=== PATIENT | male | born 1995 | race Caucasian/White ===

== ENCOUNTER 2021-02-21 10:57 | Emergency (ER) | payer SELFPAY ==
[2021-02-21 14:17] LABS: Urine Blood Negative (Negative); Urine Glucose Negative (Negative); Urine Protein Negative (Negative)
[2021-02-21] MEDS ORDERED: DIAZEPAM 5 MG TABLET ONE (14:25)
[2021-02-21] MEDS ORDERED: dexAMETHasone 10 MG/ML VIAL ONE (14:26)
[2021-02-21] MEDS ORDERED: NA CHLORIDE 0.9% 1,000 ML ONE (14:26)
[2021-02-21] MEDS ORDERED: MORPHINE 4 MG/ML SYR ONE (14:26)
[2021-02-21] MEDS ORDERED: ONDANSETRON 4 MG/2 ML VIAL ONE (14:26)
[2021-02-21] MEDS ORDERED: KETOROLAC 30 MG/ML INJ ONE (14:26)
[2021-02-21 14:30] LABS: Absolute Lymphocytes (CBC) 1.1 K/uL (0.7-4.9); Basophils % 0.5 % (0-1.3); Hematocrit 40.5 % (39.6-49.0); Lymphocytes % 20.9 % (15.3-44.8); MPV 9.5 fL (7.6-11.3); RBC Red Blood Cell Count 4.58 M/uL (4.33-5.43)
[2021-02-21 14:45] LABS: ALT/SGPT 19 U/L (12-78); AST/SGOT 11 U/L (15-37); Alkaline Phosphatase 67 U/L (45-117); BUN Blood Urea Nitrogen 8 mg/dL (7-18); Bicarbonate 29 mmol/L (21-32); Bilirubin Total 0.7 mg/dL (0.2-1.0); Glucose Level 92 mg/dL (74-106); Potassium 3.2 mmol/L (3.5-5.1); Protein, Total 8.5 g/dL (6.4-8.2); Sodium Level 143 mmol/L (136-145)
--- NOTE | 2021-02-21 15:06 | RAD REPORT ---
EXAM DESCRIPTION: CT - Spine Lumbar Wo Con - 02/21/2021 2:19 pm CLINICAL HISTORY: LOWER BACK PAIN, dysuria, urinary retention, right lower extremity radicular sympt oms COMPARISON: None. TECHNIQUE: Thin section axial imaging of the lumbar spine was performed. Sagittal and coronal recon struction images were generated and reviewed. All CT scans are performed using dose optimization technique as appropriate and may include automated exposure control or mA/KV adjustment according to patient size. FINDINGS: Lumbar bodies are normal in height and alignment. No acute or significant bone finding kylie ntifiable. No perispinal mass. No disc herniation is identifiable. No significant degree of disc bulging seen. No central spinal mayra nosis or significant foraminal stenosis identifiable. Central canal detail is inherently limited on C T imaging. Bilateral extrarenal pelves are present. No nonobstructing renal calculi seen. Imaged portions of the ureters show no calculi. Distal ureters and bladder not imaged on this study. IMPRESSION: Unremarkable noncontrast CT scan of the lumbar spine.
[2021-02-21] MEDS ORDERED: POTASSIUM 25 MEQ EFFERV TAB ONE (15:34)
--- NOTE | 2021-02-21 16:25 | ER ---
Nurse's Notes [facility] Name: Aakash Bishop Age: 25 yrs Sex: Male : 1995 Arrival Date: 02/21/2021 Time: 11:00 Bed 26 Private MD: Diagnosis: Low back pain;Sciatica, right side;Hypokalemia Presentation: 02/21 11:07 Chief complaint: Patient states: Urinary retention and dysuria off/on for 1 year. Wants ll1 his prostate checked because prostate CA runs in his family. Pain to lower back and down R leg for at least 1 month. Gait steady. No fever, symptoms worse at night. Coronavirus screen: Client denies travel out of the [place] in the last 14 days. At this time, the client does not indicate any symptoms associated with coronavirus-19. Ebola Screen: Patient denies travel to an Ebola-affected area in the 21 days before illness onset. Initial Sepsis Screen: Does the patient meet any 2 criteria? No. Patient's initial sepsis screen is negative. Does the patient have a suspected source of infection? Yes: Dysuria/Frequency/Urgency/UTI. Risk Assessment: Do you want to hurt yourself or someone else? Patient reports no desire to harm self or others. Onset of symptoms was January 24, 2020. 11:07 Method Of Arrival: Ambulatory ll1 11:07 Acuity: CHRISTIANO 3 ll1 Triage Assessment: 16:43 General: Behavior is calm. zb Historical: - Allergies: 11:10 PENICILLINS; ll1 - PMHx: 11:10 Panic Attacks; ll1 - PSHx: 11:10 wisdom teeth; Tonsillectomy; ll1 - Immunization history:: Flu vaccine is not up to date. - Social history:: Smoking status: Patient/guardian denies using tobacco, Stopped _ months ago 3. - Family history:: not pertinent. Screenin:21 Abuse screen: Denies threats or abuse. Denies injuries from another. Nutritional zb screening: No deficits noted. Tuberculosis screening: No symptoms or risk factors identified. Fall Risk None identified. Assessment: 13:22 General: Appears in no apparent distress. uncomfortable. Pain: Complains of pain in zb abdomen, pelvis and right leg Pain radiates to right leg Pain currently is 8 out of 10 on a pain scale. Quality of pain is described as aching, dull, tender, throbbing. Neuro: Level of Consciousness is awake, alert, obeys commands, Oriented to person, place, time, situation. Cardiovascular: Patient's skin is warm and dry. Respiratory: Airway is patent Respiratory effort is even, unlabored, Respiratory pattern is regular, symmetrical. GI: Abdomen is flat, Abdomen is tender to palpation X 4 quads. : Reports burning with urination, pain lower quadrant(s) in lower back urinary frequency. Derm: Skin is intact, is healthy with good turgor, Skin is dry, Skin is normal, Skin temperature is warm. Musculoskeletal: Circulation, motion, and sensation intact. Range of motion: intact in all extremities. 14:14 Reassessment: Patient appears in no apparent distress at this time. Patient and/or zb family updated on plan of care and expected duration. Pain level reassessed. Patient is alert, oriented x 3, equal unlabored respirations, skin warm/dry/pink. patient went to CT. states that medication had decreased pain and taken the edge off. Vital Signs: 11:07 BP 134 / 91; Pulse 87; Resp 17; Temp 98.6; Pulse Ox 99% ; Weight 72.12 kg; Height 5 ft. ll1 7 in. (170.18 cm); Pain 7/10; 13:25 BP 129 / 58; Pulse 71; Resp 16; Pulse Ox 99% on R/A; zb 14:30 BP 124 / 62; Pulse 98; Resp 16; Pulse Ox 100% on R/A; zb 16:30 BP 110 / 68; Pulse 67; Resp 16; Pulse Ox 100% on R/A; zb 11:07 Body Mass Index 24.90 (72.12 kg, 170.18 cm) ll1 ED Course: 11:00 Patient arrived in ED. bp1 11:09 Triage completed. ll1 11:10 Arm band placed on. ll1 13:06 Patient placed in an exam room, on a stretcher. ll1 13:12 Santy Gates MD is Attending Physician. [facility] 13:21 Cari Bee, HARDY is Primary Nurse. zb 13:25 Patient has correct armband on for positive identification. Bed in low position. Call zb light in reach. Side rails up X 1. Adult w/ patient. Pulse ox on. NIBP on. Door closed. Noise minimized. Warm blanket given. 14:10 Initial lab(s) drawn, by me, sent to lab. Urine collected: clean catch specimen, mb4 cloudy. Inserted saline lock: 22 gauge in right antecubital area, using aseptic technique. Blood collected. 14:19 CT Lumbar Spine Wo Con In Process Unspecified. EDMS 16:43 No provider procedures requiring assistance completed. IV discontinued, intact, zb bleeding controlled, No redness/swelling at site. Pressure dressing applied. Administered Medications: 14:13 Drug: Zofran (Ondansetron) 4 mg Route: IVP; Site: right antecubital; zb 14:26 Follow up: Response: No adverse reaction; Nausea is decreased zb 14:13 Drug: Decadron - Dexamethasone 10 mg Route: IVP; Site: right antecubital; zb 14:28 Follow up: Response: Marked relief of symptoms; Pain is decreased zb 14:14 Drug: TORadol (ketorolac) 30 mg Route: IVP; Site: right antecubital; zb 14:28 Follow up: Response: No adverse reaction; Marked relief of symptoms; Pain is decreased zb 14:14 Drug: morphine 4 mg {Note: RASS +1.} Route: IVP; Site: right antecubital; zb 14:26 Follow up: Response: No adverse reaction; Pain is decreased; RASS: Alert and Calm (0) zb 14:34 Drug: NS 0.9% 1000 ml Route: IV; Rate: 1 bolus; Site: right antecubital; zb 16:00 Follow up: Response: No adverse reaction; IV Status: Completed infusion; IV Intake: zb 1000ml 14:34 Drug: Valium (diazepam) 5 mg Route: PO; zb 15:00 Follow up: Response: No adverse reaction; Marked relief of symptoms; Pain is decreased; zb Anxiety decreased 15:15 Drug: Potassium Effervescent Tablet 25 mEq Route: PO; zb 16:00 Follow up: Response: No adverse reaction zb Intake: 16:00 IV: 1000ml; Total: 1000ml. zb Outcome: 16:25 Discharge ordered by . michele 16:43 Discharged to home ambulatory, with family. zb 16:43 Condition: stable 16:43 Discharge instructions given to patient, family, Instructed on discharge instructions, follow up and referral plans. medication usage, Demonstrated understanding of instructions, follow-up care, medications, Prescriptions given X 4. 16:44 Patient left the ED. laina Signatures: Dispatcher [employer] EDMS Santy Gates MD MD cha Baxter, Mackenzie mb4 Talon García RN RN ll1 Kamla Rios Zipporah, RN RN zb
--- NOTE | 2021-02-21 16:26 | EDPHYS ---
Physician Documentation [facility] Name: Aakash Bishop Age: 25 yrs Sex: Male : 1995 Arrival Date: 02/21/2021 Time: 11:00 Bed 26 Private MD: ED Physician Santy Gates HPI: 02/21 13:52 This 25 yrs old Male presents to ER via Ambulatory with complaints of Urinary michele Retention, Pain in Legs. 13:52 The patient presents with abdominal pain in the lower abdomen. Onset: The michele symptoms/episode began/occurred 3 day(s) ago. The patient presents with pain that is acute, with no known mechanism of injury. The symptoms are located in the low back, lumbar area. Onset: The symptoms/episode began/occurred 3 day(s) ago. The pain radiates to the right low back. Associated signs and symptoms: The patient has no apparent associated signs or symptoms. The problem was sustained from unknown cause. Modifying factors: The patient symptoms are alleviated by remaining still, the patient symptoms are aggravated by any movement, movement. Severity of symptoms: At their worst the symptoms were moderate, in the emergency department the symptoms are unchanged. Historical: - Allergies: 11:10 PENICILLINS; ll1 - PMHx: 11:10 Panic Attacks; ll1 - PSHx: 11:10 wisdom teeth; Tonsillectomy; ll1 - Immunization history:: Flu vaccine is not up to date. - Social history:: Smoking status: Patient/guardian denies using tobacco, Stopped _ months ago 3. - Family history:: not pertinent. ROS: 13:52 Constitutional: Negative for fever, chills, and weight loss, Eyes: Negative for injury, michele pain, redness, and discharge, ENT: Negative for injury, pain, and discharge, Neck: Negative for injury, pain, and swelling, Cardiovascular: Negative for chest pain, palpitations, and edema, Respiratory: Negative for shortness of breath, cough, wheezing, and pleuritic chest pain, Abdomen/GI: Negative for abdominal pain, nausea, vomiting, diarrhea, and constipation, : Negative for injury, bleeding, discharge, and swelling, MS/Extremity: Negative for injury and deformity, Skin: Negative for injury, rash, and discoloration, Neuro: Negative for headache, weakness, numbness, tingling, and seizure, Psych: Negative for depression, anxiety, suicide ideation, homicidal ideation, and hallucinations, Allergy/Immunology: Negative for hives, rash, and allergies, Endocrine: Negative for neck swelling, polydipsia, polyuria, polyphagia, and marked weight changes, Hematologic/Lymphatic: Negative for swollen nodes, abnormal bleeding, and unusual bruising. 13:52 Back: Positive for decreased range of motion, radiated pain, of the right low back. Exam: 13:52 Constitutional: This is a well developed, well nourished patient who is awake, alert, michele and in no acute distress. Head/Face: Normocephalic, atraumatic. Eyes: Pupils equal round and reactive to light, extra-ocular motions intact. Lids and lashes normal. Conjunctiva and sclera are non-icteric and not injected. Cornea within normal limits. Periorbital areas with no swelling, redness, or edema. ENT: Nares patent. No nasal discharge, no septal abnormalities noted. Tympanic membranes are normal and external auditory canals are clear. Oropharynx with no redness, swelling, or masses, exudates, or evidence of obstruction, uvula midline. Mucous membranes moist. Neck: Trachea midline, no thyromegaly or masses palpated, and no cervical lymphadenopathy. Supple, full range of motion without nuchal rigidity, or vertebral point tenderness. No Meningismus. Chest/axilla: Normal chest wall appearance and motion. Nontender with no deformity. No lesions are appreciated. Cardiovascular: Regular rate and rhythm with a normal S1 and S2. No gallops, murmurs, or rubs. Normal PMI, no JVD. No pulse deficits. Respiratory: Lungs have equal breath sounds bilaterally, clear to auscultation and percussion. No rales, rhonchi or wheezes noted. No increased work of breathing, no retractions or nasal flaring. Abdomen/GI: Soft, non-tender, with normal bowel sounds. No distension or tympany. No guarding or rebound. No evidence of tenderness throughout. Male : Normal genitalia with no discharge or lesions. Skin: Warm, dry with normal turgor. Normal color with no rashes, no lesions, and no evidence of cellulitis. MS/ Extremity: Pulses equal, no cyanosis. Neurovascular intact. Full, normal range of motion. Neuro: Awake and alert, GCS 15, oriented to person, place, time, and situation. Cranial nerves II-XII grossly intact. Motor strength 5/5 in all extremities. Sensory grossly intact. Cerebellar exam normal. Normal gait. Psych: Awake, alert, with orientation to person, place and time. Behavior, mood, and affect are within normal limits. 13:52 Back: pain, that is mild, ROM is painful, with all movement, normal spinal alignment noted, CVA tenderness, is absent, muscle spasm, is appreciated in the right mid back and right low back. Vital Signs: 11:07 BP 134 / 91; Pulse 87; Resp 17; Temp 98.6; Pulse Ox 99% ; Weight 72.12 kg; Height 5 ft. ll1 7 in. (170.18 cm); Pain 7/10; 13:25 BP 129 / 58; Pulse 71; Resp 16; Pulse Ox 99% on R/A; zb 14:30 BP 124 / 62; Pulse 98; Resp 16; Pulse Ox 100% on R/A; zb 16:30 BP 110 / 68; Pulse 67; Resp 16; Pulse Ox 100% on R/A; zb 11:07 Body Mass Index 24.90 (72.12 kg, 170.18 cm) ll1 MDM: 13:12 Patient medically screened. michele 14:00 Differential diagnosis: Osteoarthritis ruptured disc, non-specific abd pain, urinary michele tract infection, vertebral fracture. Data reviewed: vital signs, nurses notes, lab test result(s), radiologic studies. Data interpreted: cafeteria monitor: not applicable for this patient encounter. rate is 71 beats/min, rhythm is regular, Pulse oximetry: on room air is 99 %. Counseling: I had a detailed discussion with the patient and/or guardian regarding: the historical points, exam findings, and any diagnostic results supporting the discharge/admit diagnosis, lab results, radiology results, the need for outpatient follow up, for definitive care, a neurosurgeon. 02/21 13:51 Order name: CBC with Diff; Complete Time: 14:58 [facility] 02/21 13:51 Order name: Comprehensive Metabolic Panel; Complete Time: 14:58 [facility] 02/21 13:51 Order name: Urine Culture [facility] 02/21 13:51 Order name: CT Lumbar Spine Wo Con; Complete Time: 15:07 [facility] 02/21 14:17 Order name: Urine Dipstick-Ancillary [facility]AR 02/21 13:51 Order name: Urine Dipstick-Ancillary (obtain specimen); Complete Time: 14:14 michele Administered Medications: 14:13 Drug: Zofran (Ondansetron) 4 mg Route: IVP; Site: right antecubital; zb 14:26 Follow up: Response: No adverse reaction; Nausea is decreased zb 14:13 Drug: Decadron - Dexamethasone 10 mg Route: IVP; Site: right antecubital; zb 14:28 Follow up: Response: Marked relief of symptoms; Pain is decreased zb 14:14 Drug: TORadol (ketorolac) 30 mg Route: IVP; Site: right antecubital; zb 14:28 Follow up: Response: No adverse reaction; Marked relief of symptoms; Pain is decreased zb 14:14 Drug: morphine 4 mg {Note: RASS +1.} Route: IVP; Site: right antecubital; zb 14:26 Follow up: Response: No adverse reaction; Pain is decreased; RASS: Alert and Calm (0) zb 14:34 Drug: NS 0.9% 1000 ml Route: IV; Rate: 1 bolus; Site: right antecubital; zb 16:00 Follow up: Response: No adverse reaction; IV Status: Completed infusion; IV Intake: zb 1000ml 14:34 Drug: Valium (diazepam) 5 mg Route: PO; zb 15:00 Follow up: Response: No adverse reaction; Marked relief of symptoms; Pain is decreased; zb Anxiety decreased 15:15 Drug: Potassium Effervescent Tablet 25 mEq Route: PO; zb 16:00 Follow up: Response: No adverse reaction zb Disposition: 02/21/21 16:25 Discharged to Home. Impression: Low back pain, Sciatica, right side, Hypokalemia. - Condition is Stable. - Discharge Instructions: Back Pain, Adult, Potassium Content of Foods, Musculoskeletal Pain, Sciatica, Back Pain, Adult, [id number], Sciatica, Ejdu-[id number], Hypokalemia. - Prescriptions for dexamethasone 2 mg Oral tablet - take 1 tablet by ORAL route 3 times per day; 15 tablet. Ibuprofen 600 mg Oral Tablet - take 1 tablet by ORAL route every 6 hours As needed take with food; 20 tablet. Tylenol- Codeine #3 300-30 mg Oral Tablet - take 2 tablets by ORAL route every 4-6 hours As needed; 20 tablet. Cyclobenzaprine 5 mg Oral Tablet - take 1 tablet by ORAL route 3 times per day As needed; 15 tablet. - Medication Reconciliation Form, Thank You Letter, Antibiotic Education, Prescription Opioid Use form. - Follow up: Private Physician; When: 2 - 3 days; Reason: Recheck today's complaints, Continuance of care, Re-evaluation by your physician. - Problem is new. - Symptoms have improved. Signatures: Dispatcher [employer] EDMS Santy Gates MD MD cha Lewis, Lynsay RN RN ll1 Cari Bee RN RN zrachael Corrections: (The following items were deleted from the chart) 16:44 16:25 02/21/2021 16:25 Discharged to Home. Impression: Low back pain; Sciatica, right zb side; Hypokalemia. Condition is Stable. Discharge Instructions: Back Pain, Adult, Musculoskeletal Pain, Sciatica, Back Pain, Adult, [id number], Sciatica, Kcpl-[id number], Potassium Content of Foods, Hypokalemia. Prescriptions for dexamethasone 2 mg Oral tablet - take 1 tablet by ORAL route 3 times per day; 15 tablet, Ibuprofen 600 mg Oral Tablet - take 1 tablet by ORAL route every 6 hours As needed take with food; 20 tablet, Tylenol-Codeine #3 300-30 mg Oral Tablet - take 2 tablets by ORAL route every 4-6 hours As needed; 26 tablet, Cyclobenzaprine 5 mg Oral Tablet - take 1 tablet by ORAL route 3 times per day As needed; 15 tablet. and Forms are Medication Reconciliation Form, Thank You Letter, Antibiotic Education, Prescription Opioid Use. Follow up: Private Physician; When: 2 - 3 days; Reason: Recheck today's complaints, Continuance of care, Re-evaluation by your physician. Problem is new. Symptoms have improved. michele
[2021-02-21 16:51] VITALS: TEMP 98.6; O2SAT 99
[2021-02-21 16:52] VITALS: BP 129/58
== END 2021-02-21 16:44 | disposition home or self-care (01) ==
LOC: ER 10:57
DX: M54.31 Sciatica, right side (principal); E87.6 Hypokalemia; Z88.0 Allergy status to penicillin
CPT/HCPCS: 36415; 72131; 80053; 81003; 85025; 87086; 87088; 96361; 96374; 96375; 99284; J1100; J2405; J7030

== ENCOUNTER 2021-06-29 09:16 | Emergency (ER) | payer SELFPAY ==
[2021-06-29] MEDS ORDERED: LORazepam 2 MG/ML VIAL ONE (09:57)
--- NOTE | 2021-06-29 10:09 | ER ---
Nurse's Notes [facility] Name: Aakash Bishop Age: 25 yrs Sex: Male : 1995 Arrival Date: 06/29/2021 Time: 09:16 Bed 7 Private MD: Diagnosis: Anxiety disorder, unspecified;Patient's unintentional underdosing of medication regimen Presentation: 06/29 09:17 Chief complaint: EMS states: New to area, out of prescribed Ativan x 1 week, c/o severe hb anxiety. Coronavirus screen: At this time, the client does not indicate any symptoms associated with coronavirus-19. Ebola Screen: No symptoms or risks identified at this time. Initial Sepsis Screen: Does the patient meet any 2 criteria? No. Patient's initial sepsis screen is negative. Does the patient have a suspected source of infection? No. Patient's initial sepsis screen is negative. Risk Assessment: Do you want to hurt yourself or someone else? Patient reports no desire to harm self or others. Onset of symptoms was June 29, 2021. 09:17 Method Of Arrival: EMS: [facility] 09:17 Acuity: CHRISTIANO 3 hb Historical: - Allergies: 09:20 PENICILLINS; hb - PMHx: 09:20 Panic Attacks; hb - Immunization history:: Adult Immunizations up to date. - Social history:: Smoking status: Patient denies any tobacco usage or history of. - Family history:: not pertinent. - Hospitalizations: : No recent hospitalization is reported. Screenin:20 Abuse screen: Denies threats or abuse. Denies injuries from another. Nutritional hb screening: No deficits noted. Tuberculosis screening: No symptoms or risk factors identified. Fall Risk None identified. Assessment: 09:21 General: Appears in no apparent distress. Behavior is calm, cooperative. Pain: Denies hb pain. Neuro: Level of Consciousness is awake, alert, obeys commands, Oriented to person, place, time, situation. Cardiovascular: Patient's skin is warm and dry. Respiratory: Respiratory effort is even, unlabored, Respiratory pattern is regular, symmetrical. GI: No signs and/or symptoms were reported involving the gastrointestinal system. : No signs and/or symptoms were reported regarding the genitourinary system. EENT: No signs and/or symptoms were reported regarding the EENT system. Derm: Skin is pink, warm \T\ dry. Musculoskeletal: No signs and/or symptoms reported regarding the musculoskeletal system. 10:02 Reassessment: Patient appears in no apparent distress at this time. Patient and/or hb family updated on plan of care and expected duration. Pain level reassessed. Patient is alert, oriented x 3, equal unlabored respirations, skin warm/dry/pink. Vital Signs: 09:17 BP 127 / 84; Pulse 100; Resp 20; Temp 98.7; Pulse Ox 100% on R/A; Weight 68.04 kg; hb Height 5 ft. 7 in. (170.18 cm); Pain 0/10; 10:02 BP 127 / 84; Pulse 81; Resp 16; Pulse Ox 97% ; hb 09:17 Body Mass Index 23.49 (68.04 kg, 170.18 cm) hb ED Course: 09:16 Patient arrived in ED. hb 09:20 Triage completed. hb 09:20 Arm band placed on. EKG completed in triage. Results shown to MD. EKG completed in hb triage. Results shown to MD. 09:20 Patient has correct armband on for positive identification. Bed in low position. Call hb light in reach. 09:20 Inserted saline lock: 20 gauge in right antecubital area, using aseptic technique. hb ,using aseptic technique. by Dmitry DASH. 09:22 Skyler Fernández MD is Attending Physician. rn 10:18 No provider procedures requiring assistance completed. IV discontinued, intact, hb bleeding controlled, No redness/swelling at site. Administered Medications: 09:37 Drug: Ativan (LORazepam) 2 mg Route: IVP; Site: right antecubital; hb 10:18 Follow up: Response: No adverse reaction hb Outcome: 10:08 Discharge ordered by . rn 10:18 Discharged to home ambulatory, with significant other. hb 10:18 Condition: stable 10:18 Discharge instructions given to patient, significant other, Instructed on discharge instructions, follow up and referral plans. medication usage, Demonstrated understanding of instructions, follow-up care, medications, Prescriptions given X 1. 10:18 Patient left the ED. hb Signatures: Skyler Fernández MD MD rn Baxter, Heather, RN RN hb Corrections: (The following items were deleted from the chart) 09:21 09:17 BP 127 / 84; Pulse 100bpm; Resp 20bpm; Pulse Ox 100% RA; Temp 98.7F; hb hb
--- NOTE | 2021-06-29 10:10 | EDPHYS ---
Physician Documentation [facility] Name: Aakash Bishop Age: 25 yrs Sex: Male : 1995 Arrival Date: 06/29/2021 Time: 09:16 Bed 7 Private MD: ED Physician Skyler Fernández HPI: 06/29 09:38 This 25 yrs old Male presents to ER via EMS with complaints of Anxiety. rn 09:38 The patient presents to the emergency department with anxiety. Onset: The rn symptoms/episode began/occurred 5 day(s) ago. Associated signs and symptoms: Pertinent positives; anxiety, Pertinent negatives: chest pain, fever, hallucinations, homicidal ideation, shortness of breath, substance abuse, suicide ideation. Severity of symptoms: At their worst the symptoms were moderate in the emergency department the symptoms are unchanged. The patient has experienced similar episodes in the past. The patient has not recently seen a physician. Patient reports new to town, ran out of his Ativan 10 days ago, reports trouble sleeping for the last 5 days with increased anxiety and did not know where else to go. States has appointment next week with psychiatrist. Was taking 1 mg Ativan twice a day for the last 6 months. Denies drug use.. Historical: - Allergies: 09:20 PENICILLINS; hb - PMHx: 09:20 Panic Attacks; hb - Immunization history:: Adult Immunizations up to date. - Social history:: Smoking status: Patient denies any tobacco usage or history of. - Family history:: not pertinent. - Hospitalizations: : No recent hospitalization is reported. ROS: 09:38 Constitutional: Negative for fever, chills, and weight loss, Eyes: Negative for injury, rn pain, redness, and discharge, Neck: Negative for injury, pain, and swelling, Cardiovascular: Positive for palpitations Respiratory: Negative for shortness of breath, cough, wheezing, and pleuritic chest pain, Abdomen/GI: Negative for abdominal pain, nausea, vomiting, diarrhea, and constipation, Back: Negative for injury and pain, : Negative for injury, bleeding, discharge, and swelling, MS/Extremity: Negative for injury and deformity, Skin: Negative for injury, rash, and discoloration, Neuro: Negative for headache, weakness, numbness, tingling, and seizure, Psych: Positive for anxiety Exam: 09:38 Constitutional: This is a well developed, well nourished patient who is awake, alert, rn seems anxious Head/Face: Normocephalic, atraumatic. Eyes: Periorbital areas with no swelling, redness, or edema. ENT: Mucous membranes moist. Cardiovascular: Tachycardic, regular. No pulse deficits Respiratory: No increased work of breathing, no retractions or nasal flaring. Abdomen/GI: Soft, non-tender Skin: Warm, dry MS/ Extremity: Pulses equal, no cyanosis. Neurovascular intact. Full, normal range of motion. Equal circumference. Neuro: Awake and alert, GCS 15 Vital Signs: 09:17 BP 127 / 84; Pulse 100; Resp 20; Temp 98.7; Pulse Ox 100% on R/A; Weight 68.04 kg; hb Height 5 ft. 7 in. (170.18 cm); Pain 0/10; 10:02 BP 127 / 84; Pulse 81; Resp 16; Pulse Ox 97% ; hb 09:17 Body Mass Index 23.49 (68.04 kg, 170.18 cm) hb MDM: 09:22 Patient medically screened. rn 10:08 Differential diagnosis: anxiety. Differential diagnosis: sleep deprivation. Data rn reviewed: vital signs, nurses notes. Counseling: I had a detailed discussion with the patient and/or guardian regarding: the historical points, exam findings, and any diagnostic results supporting the discharge/admit diagnosis, the need for outpatient follow up, to return to the emergency department if symptoms worsen or persist or if there are any questions or concerns that arise at home. Response to treatment: the patient's symptoms have markedly improved after treatment, and as a result, I will discharge patient. Special discussion: I discussed with the patient/guardian in detail that at this point there is no indication for admission to the hospital. It is understood, however, that if the symptoms persist or worsen the patient needs to return immediately for re-evaluation. Based on the history and exam findings, there is no indication for further emergent testing or inpatient evaluation. I discussed with the patient/guardian the need to see the psychiatrist for further evaluation of the symptoms. Administered Medications: 09:37 Drug: Ativan (LORazepam) 2 mg Route: IVP; Site: right antecubital; hb 10:18 Follow up: Response: No adverse reaction hb Disposition Summary: 06/29/21 10:08 Discharge Ordered Location: Home rn Problem: an ongoing problem rn Symptoms: have improved rn Condition: Stable rn Diagnosis - Anxiety disorder, unspecified rn - Patient's unintentional underdosing of medication regimen rn Followup: rn - With: Private Physician - When: As needed - Reason: Recheck today's complaints, Re-evaluation by your physician Discharge Instructions: - Discharge Summary Sheet rn - Panic Attack rn - Generalized Anxiety Disorder, Adult rn Forms: - Medication Reconciliation Form rn - Thank You Letter rn - Antibiotic pig furnace operator - Prescription Opioid Use rn Prescriptions: - Ativan 1 mg Oral Tablet - take 1 tablet by ORAL route every 12 hours As needed; 7 tablet; Refills: 0, rn Product Selection Permitted Signatures: Skyler Fernández MD MD rn Lesli Linares RN RN
[2021-06-29 10:27] VITALS: BP 127/84; TEMP 98.7
[2021-06-29 10:28] VITALS: O2SAT 97
== END 2021-06-29 10:18 | disposition home or self-care (01) ==
LOC: ER 09:16
DX: F41.9 Anxiety disorder, unspecified (principal); Z91.138 Patient's unintentional underdosing of medication regimen for other reason; Z88.0 Allergy status to penicillin
CPT/HCPCS: 96374; 99284

== ENCOUNTER 2021-10-24 18:53 | Emergency (ER) | payer SELFPAY ==
[2021-10-24] MEDS ORDERED: LORAZEPAM 0.5 MG TABLET ONE (22:30)
--- NOTE | 2021-10-24 22:31 | EDPHYS ---
Physician Documentation [facility] Name: Aakash Bishop Age: 25 yrs Sex: Male : 1995 Arrival Date: 10/24/2021 Time: 18:53 Bed 14 Private MD: ED Physician Marcus Alfonso HPI: 10/24 22:26 This 25 yrs old Male presents to ER via EMS with complaints of Anxiety. pm1 22:26 The patient presents to the emergency department with anxiety. Past psychiatric pm1 history: Prior diagnosis: anxiety, Psychiatric medications include: Ativan. Associated signs and symptoms: Pertinent negatives: abdominal pain, chest pain, nausea, shortness of breath, vomiting. The patient has experienced similar episodes in the past, several times. The patient has been recently seen by a physician: the patient's primary care provider, with similar presenting complaints, Appointment with PCP on Monday, appointment with psychiatry on Monday. Historical: - Allergies: 20:09 PENICILLINS; lp1 - Home Meds: 20:09 Methotrexate Sodium Oral [Active]; Folic Acid Oral [Active]; lp1 - PMHx: 20:09 Panic Attacks; Rheumatoid arthritis; Raynaud's; lp1 - PSHx: 20:09 None; lp1 - Immunization history:: Adult Immunizations up to date, Client reports having NOT received the Covid vaccine. - Social history:: Smoking status: Patient denies any tobacco usage or history of. ROS: 22:26 Constitutional: Negative for fever, chills, and weight loss, Cardiovascular: Negative pm1 for chest pain, palpitations, and edema, Respiratory: Negative for shortness of breath, cough, wheezing, and pleuritic chest pain, Abdomen/GI: Negative for abdominal pain, nausea, vomiting, diarrhea, and constipation, MS/Extremity: Negative for injury and deformity, Skin: Negative for injury, rash, and discoloration, Neuro: Negative for headache, weakness, numbness, tingling, and seizure. 22:26 Psych: Positive for anxiety. 22:26 All other systems are negative. Exam: 22:26 Constitutional: This is a well developed, well nourished patient who is awake, alert, pm1 and in no acute distress. Head/Face: Normocephalic, atraumatic. 22:26 Skin: Warm, dry with normal turgor. Normal color with no rashes, no lesions, and no evidence of cellulitis. MS/ Extremity: Pulses equal, no cyanosis. Neurovascular intact. Full, normal range of motion. 22:26 Cardiovascular: Exam negative for acute changes, Rate: normal, Rhythm: regular, Pulses: no pulse deficits are appreciated, Heart sounds: normal. 22:26 Respiratory: Exam negative for acute changes, respiratory distress, shortness of breath, Breath sounds: are clear throughout. 22:26 Neuro: Exam negative for acute changes, Orientation: is normal, Mentation: is normal, Motor: is normal, moves all fours. Vital Signs: 20:10 BP 123 / 90; Pulse 83; Resp 18; Temp 98.2(TE); Pulse Ox 100% on R/A; Weight 70.31 kg lp1 (R); Height 5 ft. 7 in. (170.18 cm); Pain 0/10; 22:34 BP 120 / 80; Pulse 66; Resp 18; Pulse Ox 100% on R/A; ll3 20:10 Body Mass Index 24.28 (70.31 kg, 170.18 cm) lp1 MDM: 22:07 Patient medically screened. pm1 22:26 ED course: Patient is weaning himself off Ativan with the assistance of his PCP. Has pm1 appointment with PCP on Monday and has appointment with Dr. Solano on Monday. Patient's BUSINESS SUPERVISOR Aware reviewed an patient has used his prescription Ativan sooner than expected. I will not be able to give the patient a prescription. He does not want any kind of work up. Vitals within normal limits. He just wants some medication to make him more comfortable. 22:31 Data reviewed: vital signs. Data interpreted: Pulse oximetry: on room air is 100 %. pm1 Interpretation: normal. Administered Medications: 22:31 Drug: Ativan (LORazepam) 1.5 mg Route: PO; ll3 22:36 Follow up: Response: No adverse reaction ll3 Disposition: 10/25 02:20 Co-signature as Attending Physician, Marcus Alfonso MD. [email or web address] Disposition Summary: 10/24/21 22:31 Discharge Ordered Location: Home pm1 Problem: new pm1 Symptoms: have improved pm1 Condition: Stable pm1 Diagnosis - Anxiety disorder, unspecified pm1 Followup: pm1 - With: Emergency Department - When: As needed - Reason: Worsening of condition Followup: pm1 - With: Private Physician - When: 2 - 3 days - Reason: Recheck today's complaints, Continuance of care, Re-evaluation by your physician Discharge Instructions: - Discharge Summary Sheet pm1 - Generalized Anxiety Disorder, Adult pm1 Forms: - Medication Reconciliation Form pm1 - Thank You Letter pm1 - Antibiotic Education pm1 - Prescription Opioid Use pm1 Signatures: Zeinab Ramirez RN RN lp1 Stephane Rao NP WEIGHT TESTER pm1 Marcus Alfonso MD MD 7 Avni Conde RN RN ll3
--- NOTE | 2021-10-24 22:31 | ER ---
Nurse's Notes [facility] Name: Aakash Bishop Age: 25 yrs Sex: Male : 1995 Arrival Date: 10/24/2021 Time: 18:53 Bed 14 Private MD: Diagnosis: Anxiety disorder, unspecified Presentation: 10/24 18:56 Chief complaint: EMS states: is being tapered off of Lorazepam; pt is feeling heart vg1 palpitations and is 'feeling like hes going to have a seizure'. 18:56 Method Of Arrival: EMS: [facility] vg1 20:08 Coronavirus screen: At this time, the client does not indicate any symptoms associated lp1 with coronavirus-19. Ebola Screen: No symptoms or risks identified at this time. Risk Assessment: Do you want to hurt yourself or someone else? Patient reports no desire to harm self or others. Onset of symptoms was October 24, 2021. 20:08 Acuity: CHRISTIANO 3 lp1 20:10 Initial Sepsis Screen: Does the patient meet any 2 criteria? No. Patient's initial lp1 sepsis screen is negative. Does the patient have a suspected source of infection? No. Patient's initial sepsis screen is negative. 20:13 Note Reports last dose of Lorazepam 2 days ago, has ran out. lp1 Historical: - Allergies: 20:09 PENICILLINS; lp1 - Home Meds: 20:09 Methotrexate Sodium Oral [Active]; Folic Acid Oral [Active]; lp1 - PMHx: 20:09 Panic Attacks; Rheumatoid arthritis; Raynaud's; lp1 - PSHx: 20:09 None; lp1 - Immunization history:: Adult Immunizations up to date, Client reports having NOT received the Covid vaccine. - Social history:: Smoking status: Patient denies any tobacco usage or history of. Screenin:10 Abuse screen: Denies threats or abuse. Denies injuries from another. Nutritional lp1 screening: No deficits noted. Tuberculosis screening: No symptoms or risk factors identified. 22:36 Fall Risk None identified. ll3 Assessment: 22:34 General: Appears in no apparent distress. uncomfortable, Behavior is calm, cooperative. ll3 Pain: Complains of pain in All over. Neuro: Level of Consciousness is awake, alert, obeys commands, Oriented to person, place, time, situation. Cardiovascular: Patient's skin is warm and dry. Respiratory: Respiratory effort is even, unlabored, Respiratory pattern is regular, symmetrical. Derm: Skin is pink, warm \T\ dry. Vital Signs: 20:10 BP 123 / 90; Pulse 83; Resp 18; Temp 98.2(TE); Pulse Ox 100% on R/A; Weight 70.31 kg lp1 (R); Height 5 ft. 7 in. (170.18 cm); Pain 0/10; 22:34 BP 120 / 80; Pulse 66; Resp 18; Pulse Ox 100% on R/A; ll3 20:10 Body Mass Index 24.28 (70.31 kg, 170.18 cm) lp1 ED Course: 18:53 Patient arrived in ED. ds1 20:09 Triage completed. lp1 20:09 Arm band placed on right wrist. lp1 21:59 Stephane R[facility]. pm1 21:59 Marcus Alfonso MD is Attending Physician. pm1 22:36 Patient has correct armband on for positive identification. Call light in reach. Side ll3 rails up X 1. 22:36 No provider procedures requiring assistance completed. Patient did not have IV access ll3 during this emergency room visit. Administered Medications: 22:31 Drug: Ativan (LORazepam) 1.5 mg Route: PO; ll3 22:36 Follow up: Response: No adverse reaction ll3 Outcome: 22:31 Discharge ordered by . pm1 22:51 Discharged to home ambulatory, with family. ll3 22:51 Condition: stable 22:51 Discharge instructions given to patient, Instructed on discharge instructions, follow up and referral plans. Demonstrated understanding of instructions, follow-up care. 22:51 Patient left the ED. ll3 Signatures: Rema Hoyos ds1 Zeinab Ramirez RN RN lp1 Stephane Rao NP BRAND DIRECTOR pm1 Mara Sheridan RN RN 1 Avni Conde RN RN ll3
[2021-10-24 22:55] VITALS: TEMP 98.2; O2SAT 100
[2021-10-24 22:57] VITALS: BP 120/80
== END 2021-10-24 22:51 | disposition home or self-care (01) ==
LOC: ER 18:53
DX: F41.9 Anxiety disorder, unspecified (principal); Z88.0 Allergy status to penicillin
CPT/HCPCS: 99283

== ENCOUNTER 2022-06-19 13:35 | Emergency (ER) | payer SELFPAY ==
[2022-06-19] MEDS ORDERED: METOPROLOL TAR 25 MG TAB ONE (14:17)
[2022-06-19 14:37] LABS: Absolute Lymphocytes (CBC) 1.4 K/uL (0.7-4.9); MCV 89.1 fL (80-100); MPV 8.3 fL (7.6-11.3); RBC Red Blood Cell Count 4.37 M/uL (4.33-5.43)
[2022-06-19 14:50] LABS: Magnesium 2.2 mg/dL (1.8-2.4); Potassium 3.8 mmol/L (3.5-5.1); Troponin High Sensitivity 3.4 pg/mL (<58.9)
--- NOTE | 2022-06-19 15:18 | RAD REPORT ---
EXAM DESCRIPTION: RAD - Chest Single View - 06/19/2022 2:32 pm CLINICAL HISTORY: PALPITATIONS COMPARISON: None TECHNIQUE: AP portable chest image was obtained 06/19/2022 2:32 pm . FINDINGS: Lungs are clear. Heart and vasculature are normal. No measurable pleural effusion and no p neumothorax. No acute bony abnormality seen. No acute aortic findings suspected. IMPRESSION: No acute cardiopulmonary process.
--- NOTE | 2022-06-19 16:21 | EDPHYS ---
Physician Documentation [facility] Name: Aakash Bishop Age: 26 yrs Sex: Male : 1995 Arrival Date: 06/19/2022 Time: 13:47 Bed 7 Private MD: ED Physician Skyler Fernández HPI: 06/19 16:16 This 26 yrs old Male presents to ER via EMS with complaints of palpitations. rn 16:16 The patient presents with a history of heart racing. Context: The symptoms occur at rn rest. Onset: The symptoms/episode began/occurred just prior to arrival. Duration: The patient or guardian reports multiple episodes. Modifying factors: The symptoms are aggravated by nothing. The symptoms are alleviated by Valsalva maneuver, of. Associated signs and symptoms: Pertinent positives: anxiety, Pertinent negatives: chest pain, fever. Severity of symptoms: At their worst the symptoms were moderate in the emergency department the symptoms have improved. The patient has experienced a previous episode. The patient has not recently seen a physician. Pt reports recent episode of SVT, resolved, then happened again today with palpitations and heart racing. Resolved after valsalva. Mother with hx of svt herself, on sotalol. . Historical: - Allergies: 13:54 PENICILLINS; ll1 - PMHx: 13:54 Panic Attacks; raynaud's; Rheumatoid Arthritis; Anxiety; Lupus erythematosus; SVT; ll1 - PSHx: 13:54 Adenoid excision; ll1 - Immunization history:: Client reports having NOT received the Covid vaccine. - Social history:: Smoking status: Reported history of juuling and/or vaping. - Family history:: not pertinent. - Hospitalizations: : No recent hospitalization is reported. ROS: 16:16 Constitutional: Negative for fever, chills, and weight loss, Eyes: Negative for injury, rn pain, redness, and discharge, Neck: Negative for injury, pain, and swelling, Cardiovascular: Negative for chest pain, and edema, Respiratory: Negative for shortness of breath, cough, wheezing, and pleuritic chest pain, Abdomen/GI: Negative for abdominal pain, nausea, vomiting, diarrhea, and constipation, Back: Negative for injury and pain, MS/Extremity: Negative for injury and deformity, Skin: Negative for injury, rash, and discoloration, Neuro: Negative for headache, weakness, numbness, tingling, and seizure. Exam: 14:08 ECG was reviewed by the Attending Physician. rn 16:16 Constitutional: This is a well developed, well nourished patient who is awake, alert, rn and in no acute distress. Head/Face: Normocephalic, atraumatic. Eyes: Periorbital areas with no swelling, redness, or edema. Cardiovascular: Regular rate and rhythm. No pulse deficits. Respiratory: No increased work of breathing, no retractions or nasal flaring. Abdomen/GI: Soft, non-tender Skin: Warm, dry MS/ Extremity: Pulses equal, no cyanosis. Neurovascular intact. Full, normal range of motion. Equal circumference. Neuro: Awake and alert, GCS 15, oriented to person, place, time, and situation. Vital Signs: 13:55 BP 129 / 84; Pulse 85; Resp 16; Temp 98.3; Pulse Ox 99% on R/A; Weight 72.57 kg; Height ll1 5 ft. 7 in. (170.18 cm); Pain 0/10; 15:00 BP 116 / 85; Pulse 67; Resp 16; Pulse Ox 98% ; db 16:00 BP 112 / 75; Pulse 59; Resp 17; Pulse Ox 96% on R/A; ll1 16:36 BP 104 / 79; Pulse 58; Resp 17; Pulse Ox 100% on R/A; ll1 13:55 Body Mass Index 25.06 (72.57 kg, 170.18 cm) ll1 MDM: 13:51 Patient medically screened. rn 16:16 Differential diagnosis: arrythmia, dehydration, stress disorder. Data reviewed: vital rn signs, nurses notes, lab test result(s), EKG, radiologic studies, plain films, and as a result, I will discharge patient. Counseling: I had a detailed discussion with the patient and/or guardian regarding: the historical points, exam findings, and any diagnostic results supporting the discharge/admit diagnosis, lab results, radiology results, the need for outpatient follow up, to return to the emergency department if symptoms worsen or persist or if there are any questions or concerns that arise at home. Response to treatment: the patient's symptoms have resolved after treatment, the patient's condition has returned to base line, the patient is now symptom free, and as a result, I will discharge patient. Special discussion: I discussed with the patient/guardian in detail that at this point there is no indication for admission to the hospital. It is understood, however, that if the symptoms persist or worsen the patient needs to return immediately for re-evaluation. Based on the history and exam findings, there is no indication for further emergent testing or inpatient evaluation. I discussed with the patient/guardian the need to see the clinical esthetician for further evaluation of the symptoms. ED course: Pt with resolution of symptoms prior to arrival, second time has happened, labs unremarkable, stable vitals. Will dc home on metoprolol and recommend close cardiology f/u. . 06/19 14:02 Order name: Basic Metabolic Panel; Complete Time: 14:54 06/19 14:02 Order name: CBC with Diff; Complete Time: 14:06/19 14:02 Order name: Magnesium; Complete Time: 14:06/19 14:02 Order name: NT PRO-BNP; Complete Time: 14:06/19 14:02 Order name: Troponin HS; Complete Time: 14:06/19 14:02 Order name: XRAY Chest (1 view); Complete Time: 15:20 06/19 14:02 Order name: EKG; Complete Time: 14:04 06/19 14:02 Order name: Cardiac monitoring; Complete Time: 14:06/19 14:02 Order name: EKG - Nurse/Tech; Complete Time: 14:06/19 14:02 Order name: IV Saline Lock; Complete Time: 14:06/19 14:02 Order name: Labs collected and sent; Complete Time: 14:19 06/19 14:02 Order name: O2 Per Protocol; Complete Time: 14:06/19 14:02 Order name: O2 Sat Monitoring; Complete Time: 14: rn EC:08 Rate is 80 beats/min. Rhythm is regular. QRS [place] is Normal. PA interval is normal. QRS rn interval is normal. QT interval is normal. No Q waves. T waves are Normal. No ST changes noted. Clinical impression: Normal ECG. Interpreted by me. Reviewed by me. Administered Medications: 14:19 Drug: Metoprolol 25 mg Route: PO; kr3 16:40 Follow up: Response: No adverse reaction ll1 Disposition Summary: 06/19/22 16:20 Discharge Ordered Location: Home rn Problem: new rn Symptoms: have improved rn Condition: Stable rn Diagnosis - Supraventricular tachycardia rn Followup: rn - With: Mario Witt MD - When: 2 - 3 days - Reason: Recheck today's complaints, Re-evaluation by your physician Discharge Instructions: - Discharge Summary Sheet rn - Supraventricular Tachycardia, Adult rn Forms: - Medication Reconciliation Form rn - Thank You Letter rn - Antibiotic cerner analyst - Prescription Opioid Use rn Prescriptions: - metoprolol succinate 25 mg Oral tablet extended release 24 hr - take 1 tablet by ORAL route once daily; 30 tablet; Refills: 0, Product rn Selection Permitted Signatures: Dispatcher [employer] Skyler Mclaughlin MD MD rn Lewis, Lynsay, RN RN ll1 Kaitlyn Juarez RN RN kr3
--- NOTE | 2022-06-19 16:21 | ER ---
Nurse's Notes [facility] Name: Aakash Bishop Age: 26 yrs Sex: Male : 1995 Arrival Date: 06/19/2022 Time: 13:47 Bed 7 Private MD: Diagnosis: Supraventricular tachycardia Presentation: 06/19 13:55 Chief complaint: Patient states: Palpitations worse than usual since Monday. States he ll1 went into SVT at home on Monday and converted himself with vagal maneuvers. EMS states: A fib with RVR on monitor rate 165-180, converted on his own. 20 G R AC . Coronavirus screen: Vaccine status: Patient reports being unvaccinated. Client denies travel out of the [place] in the last 14 days. congestion, Client presents with at least one sign or symptom that may indicate coronavirus-19. Standard/surgical mask placed on the client. Ebola Screen: Patient denies travel to an Ebola-affected area in the 21 days before illness onset. Initial Sepsis Screen: Does the patient meet any 2 criteria? No. Patient's initial sepsis screen is negative. Does the patient have a suspected source of infection? No. Patient's initial sepsis screen is negative. Risk Assessment: Do you want to hurt yourself or someone else? Patient reports no desire to harm self or others. Onset of symptoms was June 14, 2022. 13:55 Method Of Arrival: EMS ll1 13:55 Acuity: CHRISTIANO 3 ll1 Triage Assessment: 13:58 General: Appears in no apparent distress. Behavior is calm, cooperative, appropriate ll1 for age. Pain: Denies pain. Cardiovascular: Reports palpitations, since Monday off/on. Historical: - Allergies: 13:54 PENICILLINS; ll1 - PMHx: 13:54 Panic Attacks; raynaud's; Rheumatoid Arthritis; Anxiety; Lupus erythematosus; SVT; ll1 - PSHx: 13:54 Adenoid excision; ll1 - Immunization history:: Client reports having NOT received the Covid vaccine. - Social history:: Smoking status: Reported history of juuling and/or vaping. - Family history:: not pertinent. - Hospitalizations: : No recent hospitalization is reported. Screenin:37 Abuse screen: Denies threats or abuse. Nutritional screening: No deficits noted. ll1 Tuberculosis screening: No symptoms or risk factors identified. Fall Risk IV access (20 points). Total Browne Fall Scale indicates No Risk (0-24 pts). Assessment: 14:55 Reassessment: No changes from previously documented assessment. Patient and/or family ll1 updated on plan of care and expected duration. Pain level reassessed. General: Appears in no apparent distress. comfortable, Behavior is calm, cooperative. 16:00 Reassessment: No changes from previously documented assessment. Patient and/or family ll1 updated on plan of care and expected duration. Pain level reassessed. Vital Signs: 13:55 BP 129 / 84; Pulse 85; Resp 16; Temp 98.3; Pulse Ox 99% on R/A; Weight 72.57 kg; Height ll1 5 ft. 7 in. (170.18 cm); Pain 0/10; 15:00 BP 116 / 85; Pulse 67; Resp 16; Pulse Ox 98% ; db 16:00 BP 112 / 75; Pulse 59; Resp 17; Pulse Ox 96% on R/A; ll1 16:36 BP 104 / 79; Pulse 58; Resp 17; Pulse Ox 100% on R/A; ll1 13:55 Body Mass Index 25.06 (72.57 kg, 170.18 cm) ll1 ED Course: 13:47 Patient arrived in ED. eb 13:51 Skyler Fernández MD is Attending Physician. rn 13:53 Talon García, HARDY is Primary Nurse. ll1 13:54 Arm band placed on Patient placed in an exam room, on a stretcher. ll1 13:58 Triage completed. ll1 13:58 Maintain EMS IV. Dressing intact. Good blood return noted. Site clean \T\ dry. Gauge \T\ ll 1 site: 20 G R AC. 14:00 Bed in low position. Call light in reach. Side rails up X 1. ll1 14:34 XRAY Chest (1 view) In Process Unspecified. EDMS 16:20 Mario Witt MD is Referral Physician. rn 16:37 No provider procedures requiring assistance completed. IV discontinued, intact, ll1 bleeding controlled, No redness/swelling at site. Pressure dressing applied. Administered Medications: 14:19 Drug: Metoprolol 25 mg Route: PO; kr3 16:40 Follow up: Response: No adverse reaction ll1 Medication: 16:39 VIS not applicable for this client. ll1 Outcome: 16:20 Discharge ordered by . rn 16:38 Discharged to home ambulatory. 1 16:38 Condition: stable 16:38 Discharge instructions given to patient, Instructed on discharge instructions, follow up and referral plans. medication usage, Demonstrated understanding of instructions, follow-up care, medications, Prescriptions given X 1. 16:41 Patient left the ED. 1 Signatures: Dispatcher [employer] EDMS Skyler Fernández MD MD rn Botello, Talon Hale RN RN ll1 Kaitlyn Juarez RN RN kr3 Asia Adorno RN RN db
--- NOTE | 2022-06-20 14:09 | EKG ---
Test Date: 2022-06-19 Test Time: 14:06:22 Map Colorer: ENDER MEASUREMENT RESULTS: Intervals: Rate: 80 NH: 162 QRSD: 92 QT: 348 QTc: 401 [place]: P: 57 NH: 162 QRS: 66 T: 42 INTERPRETIVE STATEMENTS: Normal sinus rhythm Normal ECG No previous ECG available for comparison Electronically Signed On 06-20-22 14:08:24 CDT by Mario Witt
[2022-06-21 07:31] VITALS: BP 116/85; O2SAT 98
[2022-06-21 07:47] VITALS: TEMP 98.3
== END 2022-06-19 16:41 | disposition home or self-care (01) ==
LOC: ER 13:35
DX: I47.1 Supraventricular tachycardia (principal)
CPT/HCPCS: 36415; 71045; 80048; 83735; 83880; 84484; 85025; 93005; 99284

== ENCOUNTER 2022-09-03 08:48 | Emergency (ER) | payer SELFPAY ==
--- NOTE | 2022-09-03 09:07 | ER ---
Nurse's Notes [facility] Name: Aakash Bishop Age: 26 yrs Sex: Male : 1995 Arrival Date: 09/03/2022 Time: 08:52 Bed IW2 Private MD: Diagnosis: Anxiety disorder, unspecified Presentation: 09/03 08:56 Chief complaint: EMS states: out of psych meds for a couple days, now having iw hallucinations off and on, not right now, he is coming off benzos , denies SI , vomiting this morning. 09:00 Coronavirus screen: At this time, the client does not indicate any symptoms associated iw with coronavirus-19. Ebola Screen: Patient negative for fever greater than or equal to 101.5 degrees Fahrenheit, and additional compatible Ebola Virus Disease symptoms Patient denies exposure to infectious person. Patient denies travel to an Ebola-affected area in the 21 days before illness onset. No symptoms or risks identified at this time. Initial Sepsis Screen: Does the patient meet any 2 criteria? No. Patient's initial sepsis screen is negative. Does the patient have a suspected source of infection? No. Patient's initial sepsis screen is negative. Risk Assessment: Do you want to hurt yourself or someone else? Patient reports no desire to harm self or others. Onset of symptoms was September 03, 2022. 09:00 Method Of Arrival: Wheelchair iw 09:00 Acuity: CHRISTIANO 3 iw Historical: - Allergies: 08:57 PENICILLINS; iw - PMHx: 08:57 Anxiety; Lupus erythematosus; Panic Attacks; raynaud's; Rheumatoid Arthritis; SVT; iw - PSHx: 08:57 Adenoid excision; iw Screenin:02 Abuse screen: Denies threats or abuse. Denies injuries from another. Nutritional iw screening: No deficits noted. Tuberculosis screening: No symptoms or risk factors identified. Fall Risk None identified. Assessment: 09:01 General: Appears in no apparent distress. Behavior is cooperative, anxious. Pain: iw Denies pain. Neuro: Cassidy Agitation-Sedation Scale (RASS): Level of Consciousness is awake, alert, obeys commands, Oriented to person, place, time, situation, Moves all extremities. Full function. Cardiovascular: Patient's skin is warm and dry. Respiratory: Respiratory effort is even, unlabored, Respiratory pattern is regular, symmetrical. Derm: Skin is intact, is healthy with good turgor. Musculoskeletal: Range of motion: intact in all extremities. Vital Signs: 09:00 BP 123 / 71; Pulse 91; Resp 16; Temp 98.0; Pulse Ox 100% on R/A; iw ED Course: 08:52 Patient arrived in ED. am2 08:52 Raul Johnson MD is Attending Physician. rt 09:01 Triage completed. iw 09:01 Arm band placed on. iw 09:02 No provider procedures requiring assistance completed. iw 09:09 Shivani Rey, RN is Primary Nurse. iw Administered Medications: 09:09 Drug: Ativan (LORazepam) 2 mg Route: PO; iw 09:09 Drug: Zofran (Ondansetron) 4 mg Route: PO; iw Medication: 09:02 VIS not applicable for this client. iw Outcome: 09:06 Discharge ordered by . rt 09:14 Patient left the ED. iw Signatures: Shivani Rey RN RN iw Radha Guerrier am2 Raul Johnson MD MD rt Corrections: (The following items were deleted from the chart) 09:01 08:56 Chief complaint: EMS states: out of psych meds for a couple days, now having iw hallucinations, takes iw
--- NOTE | 2022-09-03 09:07 | EDPHYS ---
Physician Documentation [facility] Name: Aakash Bishop Age: 26 yrs Sex: Male : 1995 Arrival Date: 09/03/2022 Time: 08:52 Bed IW2 Private MD: ED Physician Raul Johnson HPI: 09/03 09:49 This 26 yrs old Male presents to ER via Wheelchair with complaints of Psych Problem. rt 09:49 The patient presents to the emergency department with anxiety. Associated signs and rt symptoms: Pertinent positives; nausea. Severity of symptoms: At their worst the symptoms were moderate. Patient has a history of anxiety disorder. The patient states that he was recently weaned off of Xanax with the plan of transitioning him to Klonopin. He states that his prescription is only available on Monday. Last of benzodiazepines 2 days ago. He reports some withdrawal symptoms, feeling anxious, shaky as well as having nausea. He denies any suicidal ideation, homicidal ideation. The patient denies other acute complaints at this time, symptoms are moderate severity, no other aggravating or alleviating factors.. Historical: - Allergies: 08:57 PENICILLINS; iw - PMHx: 08:57 Anxiety; Lupus erythematosus; Panic Attacks; raynaud's; Rheumatoid Arthritis; SVT; iw - PSHx: 08:57 Adenoid excision; iw ROS: 09:49 Constitutional: Negative for fever, chills, and weight loss, Eyes: Negative for injury, rt pain, redness, and discharge, Cardiovascular: Negative for chest pain, palpitations, and edema, Respiratory: Negative for shortness of breath, cough, wheezing, and pleuritic chest pain, MS/Extremity: Negative for injury and deformity, Skin: Negative for injury, rash, and discoloration, Neuro: Negative for headache, weakness, numbness, tingling, and seizure. 09:49 Abdomen/GI: Positive for nausea, Negative for abdominal pain, vomiting. 09:49 Psych: Positive for anxiety, Negative for suicidal ideation. Exam: 09:49 Constitutional: This is a well developed, well nourished patient who is awake, alert, rt and in no acute distress. Head/Face: Normocephalic, atraumatic. Neck: Trachea midline, no thyromegaly or masses palpated, and no cervical lymphadenopathy. Supple, full range of motion without nuchal rigidity, or vertebral point tenderness. No Meningismus. Chest/axilla: Normal chest wall appearance and motion. Nontender with no deformity. No lesions are appreciated. Cardiovascular: Regular rate and rhythm with a normal S1 and S2. No gallops, murmurs, or rubs. Normal PMI, no JVD. No pulse deficits. Respiratory: Lungs have equal breath sounds bilaterally, clear to auscultation and percussion. No rales, rhonchi or wheezes noted. No increased work of breathing, no retractions or nasal flaring. Abdomen/GI: Soft, non-tender, with normal bowel sounds. No distension or tympany. No guarding or rebound. No evidence of tenderness throughout. Skin: Warm, dry with normal turgor. Normal color with no rashes, no lesions, and no evidence of cellulitis. MS/ Extremity: Pulses equal, no cyanosis. Neurovascular intact. Full, normal range of motion. Neuro: Awake and alert, GCS 15, oriented to person, place, time, and situation. Cranial nerves II-XII grossly intact. Motor strength 5/5 in all extremities. Sensory grossly intact. Cerebellar exam normal. Normal gait. 09:49 Psych: mood Anxious, affect congruent, no suicidal, homicidal ideation. Vital Signs: 09:00 BP 123 / 71; Pulse 91; Resp 16; Temp 98.0; Pulse Ox 100% on R/A; iw MDM: 09:06 Patient medically screened. rt 09:49 Differential diagnosis: drug withdrawal. anxiety, depression. Data reviewed: vital rt signs, nurses notes, old medical records. ED course: Presents to the ED with an anxiety disorder as well as reports of a benzodiazepine withdrawal. He is not tachycardic or tremulous. He has no vital sign abnormalities to suggest an acute withdrawal. Patient is not suicidal. Patient will receive his next prescription for benzodiazepines in a few days. After discussion with the patient, we agree that he only requires some medications as a stopgap at this time and does not require any further intervention or evaluation in the ED. He is stable for outpatient management, desirous of discharge. He has not admitted threat to himself or others nor is he gravely disabled. Patient is cooperative with goal-directed thought and has good insight and judgment. Patient will keep his appointment as an outpatient. Return precautions discussed.. Administered Medications: 09:09 Drug: Ativan (LORazepam) 2 mg Route: PO; iw 09:09 Drug: Zofran (Ondansetron) 4 mg Route: PO; iw Disposition Summary: 09/03/22 09:06 Discharge Ordered Location: Home rt Problem: chronic rt Symptoms: have improved rt Condition: Stable rt Diagnosis - Anxiety disorder, unspecified rt Followup: rt - With: Private Physician - When: 2 - 3 days - Reason: Discharge Instructions: - Discharge Summary Sheet rt - Managing Anxiety, Adult rt Forms: - Medication Reconciliation Form rt - Thank You Letter rt - Work release form iw - Antibiotic Education rt - Prescription Opioid Use rt Prescriptions: - Ativan 1 mg Oral Tablet - take 1 tablet by ORAL route every 8 hours As needed; 8 tablet; Refills: 0, rt Product Selection Permitted Signatures: Shivani Rey, RN RN iw Raul Johnson MD MD rt
[2022-09-03] MEDS ORDERED: LORAZEPAM 1 MG TABLET ONE (09:09)
[2022-09-03] MEDS ORDERED: ONDANSETRON 4 MG (ODT) TAB ONE (09:09)
[2022-09-03 18:20] VITALS: BP 123/71; TEMP 98; O2SAT 100
== END 2022-09-03 09:14 | disposition home or self-care (01) ==
LOC: ER 08:48
DX: F41.9 Anxiety disorder, unspecified (principal); Z88.0 Allergy status to penicillin
CPT/HCPCS: 99282; Q0162

== ENCOUNTER 2022-10-24 13:10 | Emergency (ER) | payer SELFPAY ==
--- NOTE | 2022-10-24 13:50 | RAD REPORT ---
EXAM DESCRIPTION: Angelo Poole (2 Views)10/24/2022 1:37 pm CLINICAL HISTORY: Chest pain COMPARISON: None FINDINGS: The lungs appear clear of acute infiltrate. The heart is normal size IMPRESSION: No acute abnormalities displayed
[2022-10-24] MEDS ORDERED: ONDANSETRON 4 MG/2 ML VIAL ONE (16:01)
[2022-10-24] MEDS ORDERED: NA CHLORIDE 0.9% 1,000 ML ONE (16:02)
[2022-10-24] MEDS ORDERED: FAMOTIDINE 20 MG/2 ML VIAL IV ONE (16:02)
[2022-10-24 16:04] LABS: Absolute Lymphocytes (CBC) 1.7 K/uL (0.7-4.9); Hematocrit 44.3 % (39.6-49.0); Lymphocytes % 21.8 % (15.3-44.8); MCV 89.5 fL (80-100); RBC Red Blood Cell Count 4.95 M/uL (4.33-5.43)
[2022-10-24 16:26] LABS: Albumin 4.7 g/dL (3.4-5.0); Bilirubin Total 0.8 mg/dL (0.2-1.0); Potassium 3.7 mmol/L (3.5-5.1); Protein, Total 8.7 g/dL (6.4-8.2)
--- NOTE | 2022-10-24 17:01 | RAD REPORT ---
EXAM DESCRIPTION: CT - Abdomen Pelvis Wo Contrast - 10/24/2022 4:51 pm CLINICAL HISTORY: Abdominal pain /epigastric pain COMPARISON: None TECHNIQUE: Computed axial tomography of the abdomen and pelvis was obtained. IV and oral contrast we re not requested. All CT scans are performed using dose optimization technique as appropriate and may include automated exposure control or mA/KV adjustment according to patient size. FINDINGS: The evaluation of solid organs, vessels and bowel is limited secondary to the lack of con trast administration. The liver, spleen, pancreas, and adrenals appear grossly normal Mild prominence of bilateral extrarenal pelves. The appendix is normal. There is no evidence of diverticulitis. A moderate amount stool within the colon. Tiny umbilical hernia IMPRESSION: Mild prominence of bilateral extrarenal pelves probably physiologic. Mild UPJ stricture can also have this appearance. If the patient has clinical symptoms/abnormal labs to suggest this the n a nuclear medicine renal Lasix scan would be recommended.
[2022-10-24] MEDS ORDERED: LIDOCAINE VISCOUS 2% SOLN 15 ML UDC ONE (17:26)
[2022-10-24] MEDS ORDERED: MAGNES/ALUMIN/SIMET 30ML UCUP ONE (17:26)
[2022-10-24 17:32] LABS: Urine Blood Negative (Negative); Urine Glucose Negative (Negative); Urine Protein Negative (Negative); Urine Specific Gravity <=1.005 (1.005-1.030)
--- NOTE | 2022-10-24 18:45 | RAD REPORT ---
EXAM DESCRIPTION: CT - Thorax Wo Con - 10/24/2022 6:36 pm CLINICAL HISTORY: chest pain after eating COMPARISON: Abdomen Pelvis Wo Contrast dated 10/24/2022 FINDINGS: Chest Wall: No suspicious thyroid nodules or pathologic lymphadenopathy. Lungs: No acute abnormality. Pleura: No significant effusions or pneumothorax. Mediastinum/henry: No pathologic lymphadenopathy. Pulmonary arteries/Aorta: Limited evaluation without contrast. No aortic aneurysm. Heart: No significant pericardial effusion. Normal heart size. Upper abdomen: Reference same-day CT of the abdomen pelvis. Bones: No acute abnormality. All CT scans are performed using dose optimization technique as appropriate and may include automated exposure control or mA/KV adjustment according to patient size. IMPRESSION: No acute findings in the chest. Noncontrast chest CT is within normal limits.
--- NOTE | 2022-10-24 18:54 | EDPHYS ---
Physician Documentation [facility] Name: Aakash Bishop Age: 26 yrs Sex: Male : 1995 Arrival Date: 10/24/2022 Time: 13:11 Bed 11 Private MD: ED Physician Skyler Fernández HPI: 10/24 13:45 This 26 yrs old Male presents to ER via Ambulatory with complaints of Chest Pain, left jh7 pectoral side. 13:45 Onset: The symptoms/episode began/occurred yesterday. Associated signs and symptoms: jh7 Pertinent positives: chest pain, Pertinent negatives: cough, fever, shortness of breath. 26 y/o male presents with chest pain after swallowing food starting since yesterday. Reports that the pain radiates to his L shoulder and back. Reports that he has a history of an inflamed gallbladder and acid reflux. Reports that he is concerned he is having a heart attack.. Historical: - Allergies: 13:45 PENICILLINS; jh5 - PMHx: 13:45 Anxiety; Lupus erythematosus; Panic Attacks; raynaud's; Rheumatoid Arthritis; SVT; jh5 - PSHx: 13:45 Adenoid excision; jh5 - Immunization history:: Adult Immunizations up to date. - Social history:: Smoking status: Patient denies any tobacco usage or history of. ROS: 13:45 Constitutional: Negative for fever, chills, and weight loss, Eyes: Negative for injury, jh7 pain, redness, and discharge, ENT: Negative for injury, pain, and discharge, Neck: Negative for injury, pain, and swelling, Respiratory: Negative for shortness of breath, cough, wheezing, and pleuritic chest pain, Abdomen/GI: Negative for abdominal pain, nausea, vomiting, diarrhea, and constipation, Back: Negative for injury and pain, MS/Extremity: Negative for injury and deformity, Skin: Negative for injury, rash, and discoloration, Neuro: Negative for headache, weakness, numbness, tingling, and seizure. 13:45 Cardiovascular: Positive for chest pain, when swallowing. 13:45 All other systems are negative. Exam: 13:45 Constitutional: This is a well developed, well nourished patient who is awake, alert, jh7 and in no acute distress. Head/Face: Normocephalic, atraumatic. Eyes: Pupils equal round and reactive to light, extra-ocular motions intact. Lids and lashes normal. Conjunctiva and sclera are non-icteric and not injected. Cornea within normal limits. Periorbital areas with no swelling, redness, or edema. ENT: Nares patent. No nasal discharge, no septal abnormalities noted. Tympanic membranes are normal and external auditory canals are clear. Oropharynx with no redness, swelling, or masses, exudates, or evidence of obstruction, uvula midline. Mucous membranes moist. Neck: Trachea midline, no thyromegaly or masses palpated, and no cervical lymphadenopathy. Supple, full range of motion without nuchal rigidity, or vertebral point tenderness. No Meningismus. Cardiovascular: Regular rate and rhythm with a normal S1 and S2. No gallops, murmurs, or rubs. Normal PMI, no JVD. No pulse deficits. Respiratory: Lungs have equal breath sounds bilaterally, clear to auscultation and percussion. No rales, rhonchi or wheezes noted. No increased work of breathing, no retractions or nasal flaring. Abdomen/GI: Soft, non-tender, with normal bowel sounds. No distension or tympany. No guarding or rebound. No evidence of tenderness throughout. Skin: Warm, dry with normal turgor. Normal color with no rashes, no lesions, and no evidence of cellulitis. MS/ Extremity: Pulses equal, no cyanosis. Neurovascular intact. Full, normal range of motion. Neuro: Awake and alert, GCS 15, oriented to person, place, time, and situation. Motor strength 5/5 in all extremities. Sensory grossly intact. Normal gait. Vital Signs: 13:42 BP 115 / 86; Pulse 89; Resp 18; Temp 98.6; Pulse Ox 100% ; Weight 81.65 kg; Height 5 jh5 ft. 7 in. (170.18 cm); Pain 4/10; 16:44 BP 106 / 74; Pulse 78; Pulse Ox 98% on R/A; ap3 13:42 Body Mass Index 28.19 (81.65 kg, 170.18 cm) jh5 MDM: 13:27 Patient medically screened. rn 17:15 ED course: Patient upset with the normal lab results and nonacute CT findings. States jh7 that there has to be something wrong and asked for an MRI of his esophagus. Informed him that we do not do MRIs of the esophagus and he is not having any throat or neck pain. Also informed him that he is able to tolerate p.o., and that he has not had any vomiting. The patient stated that he is just anxious and concerned that there is something wrong. Agreed to order a CT of the chest to rule out any distal esophageal issues.. 18:54 Differential diagnosis: Acute MT, anxiety, GERD, cholecystitis. Data reviewed: [facility] signs, nurses notes, lab test result(s), EKG, radiologic studies, CT scan, plain films. I considered the following discharge prescriptions or medication management in the emergency department Medications were administered in the Emergency Department. See MAR. Independent interpretation of the following test(s) in the Emergency Department EKG: See my EKG interpretation above X-Ray: My interpretation is No acute findings. Care significantly affected by the following chronic conditions: Anxiety. Counseling: I had a detailed discussion with the patient and/or guardian regarding: the historical points, exam findings, and any diagnostic results supporting the discharge/admit diagnosis, the need for outpatient follow up, a delivery and mail sorter, to return to the emergency department if symptoms worsen or persist or if there are any questions or concerns that arise at home. ED course: The patient symptoms resolved upon arrival to the ER. The patient was very anxious and was concerned because he experienced chest pain when he swallowed. He denied any throat pain, neck pain, or vomiting. He was able to tolerate p.o. in the ER. Discussed possibilities of GERD and advised GI follow-up. The patient states that he has omeprazole at home but has not started it. Advised him to start taking the medication as prescribed. He develops any new concerning symptoms, he may return to the ER for further eval.. 10/24 15:32 Order name: CBC with Diff; Complete Time: 16:28 [facility] 10/24 15:32 Order name: CMP; Complete Time: 16:28 [facility] 10/24 15:32 Order name: Lipase; Complete Time: 16:28 [facility] 10/24 17:28 Order name: Troponin High Sensitivity; Complete Time: 17:51 [facility] 10/24 17:32 Order name: Urine Dipstick-Ancillary; Complete Time: 17:36 EDCA 10/24 17:58 Order name: Urine --Ancillary (enter results) bd 10/24 13:27 Order name: XRAY Chest Pa And Lat (2 Views); Complete Time: 15:31 rn 10/24 16:50 Order name: Abdomen ; Complete Time: 17:12 EDMS 10/24 18:03 Order name: CT Chest Wo Con; Complete Time: 18:51 [facility] 10/24 13:27 Order name: EKG; Complete Time: 13:27 rn 10/24 13:27 Order name: EKG - Nurse/Tech; Complete Time: 13:47 rn 10/24 15:32 Order name: IV Saline Lock; Complete Time: 15:55 [facility] 10/24 15:32 Order name: Labs collected and sent; Complete Time: 15:55 [facility] 10/24 15:32 Order name: Urine Dipstick-Ancillary (obtain specimen); Complete Time: 17:34 jh7 EC:45 Rate is 75 beats/min. Rhythm is regular. QRS [place] is Normal. MD interval is normal at 7 146 msec. QRS interval is normal at 96 msec. QT interval is normal at 372 msec. No Q waves. T waves are Normal. No ST changes noted. Clinical impression: Normal ECG. Administered Medications: 16:02 Drug: NS 0.9% 1000 ml Route: IV; Rate: 1 bolus; Site: right antecubital; ap3 18:26 Follow up: IV Status: Completed infusion ap3 16:03 Drug: Pepcid (famotidine) 20 mg Route: IVP; Site: right antecubital; ap3 17:34 Follow up: Response: No adverse reaction ap3 16:03 Drug: Zofran (Ondansetron) 4 mg Route: IVP; Site: right antecubital; ap3 17:34 Follow up: Response: No adverse reaction; Nausea is decreased ap3 17:33 Drug: GI Cocktail without - (Maalox Suspension 30 ml, Lidocaine Liquid 2 % 15 ap3 ml) Route: PO; 18:26 Follow up: Response: No adverse reaction ap3 Disposition: 10/25 07:10 Co-signature as Attending Physician, Skyler Fernández MD I reviewed the patient's care rn provided by the Advanced Practice Provider and agree with the diagnosis and treatment plan. Disposition Summary: 10/24/22 18:53 Discharge Ordered Location: Home [facility] Problem: new jh7 Symptoms: have improved jh7 Condition: Stable [facility] Diagnosis - Chest pain, unspecified [facility] Followup: [facility] - With: Williams Plummer MD - When: 2 - 3 days - Reason: Recheck today's complaints Discharge Instructions: - Discharge Summary Sheet [facility] - Nonspecific Chest Pain, Adult [facility] - Gastroesophageal Reflux Disease, Adult [facility] Forms: - Medication Reconciliation Form [facility] - Thank You Letter [facility] Signatures: Dispatcher [employer] Skyler Mclaughlin MD MD rn Radha Bal RN RN ap3 Yusra Nagel RN RN jh5 Emmanuelle Grijalva FNP PHOTOGRAPHIC LABORATORY SUPERVISOR [facility] Corrections: (The following items were deleted from the chart) 10/24 16:50 15:32 Abdomen Pelvis W Con+CT.RAD.BRZ ordered. EDCA EDCA
--- NOTE | 2022-10-24 18:54 | ER ---
Nurse's Notes [facility] Name: Aakash Bishop Age: 26 yrs Sex: Male : 1995 Arrival Date: 10/24/2022 Time: 13:11 Bed 11 Private MD: Diagnosis: Chest pain, unspecified Presentation: 10/24 13:42 Chief complaint: Patient states: I thought I was having indigestion yesterday but 5 nothing helped; I was up all night because of the chest pain. I called the ambulance last night, they told me my EKG looked fine so I tried to wait it out. I am not so much worried about a heart thing but maybe a hiatal hernia or esophageal tear; it gets worse after I eat or drink something and the pain comes and goes. Coronavirus screen: Vaccine status: Patient reports being unvaccinated. Client denies travel out of the [place] in the last 14 days. Ebola Screen: Patient negative for fever greater than or equal to 101.5 degrees Fahrenheit, and additional compatible Ebola Virus Disease symptoms Patient denies exposure to infectious person. Patient denies travel to an Ebola-affected area in the 21 days before illness onset. Initial Sepsis Screen: Does the patient meet any 2 criteria? No. Patient's initial sepsis screen is negative. Does the patient have a suspected source of infection? No. Patient's initial sepsis screen is negative. Risk Assessment: Do you want to hurt yourself or someone else? Patient reports no desire to harm self or others. Onset of symptoms was October 23, 2022. 13:42 Method Of Arrival: Ambulatory [facility] 13:42 Acuity: CHRISTIANO 3 jh5 Triage Assessment: 13:45 General: Appears in no apparent distress. slender, Behavior is calm, cooperative, jh5 appropriate for age. Pain: Complains of pain in chest. Cardiovascular: Reports chest pain, nausea. Historical: - Allergies: 13:45 PENICILLINS; jh5 - PMHx: 13:45 Anxiety; Lupus erythematosus; Panic Attacks; raynaud's; Rheumatoid Arthritis; SVT; jh5 - PSHx: 13:45 Adenoid excision; jh5 - Immunization history:: Adult Immunizations up to date. - Social history:: Smoking status: Patient denies any tobacco usage or history of. Screenin:06 [facility] ED Fall Risk Assessment (Adult) History of falling in the last 3 months, ap3 including since admission No falls in past 3 months (0 pts). Abuse screen: Denies threats or abuse. Nutritional screening: No deficits noted. Tuberculosis screening: No symptoms or risk factors identified. Assessment: 16:05 General: Appears uncomfortable, Behavior is anxious. Pain: Complains of pain in chest ap3 Pain radiates to left arm, and neck Pain began gradually, 2-3 days ago. Neuro: Level of Consciousness is awake, alert, obeys commands, Oriented to person, place, time, situation, Appropriate for age Gait is steady, Speech is normal, Facial symmetry appears normal. Cardiovascular: Patient's skin is warm and dry. Respiratory: Airway is patent Respiratory effort is even, unlabored, Respiratory pattern is regular, symmetrical. Vital Signs: 13:42 BP 115 / 86; Pulse 89; Resp 18; Temp 98.6; Pulse Ox 100% ; Weight 81.65 kg; Height 5 [facility] ft. 7 in. (170.18 cm); Pain 4/10; 16:44 BP 106 / 74; Pulse 78; Pulse Ox 98% on R/A; ap3 13:42 Body Mass Index 28.19 (81.65 kg, 170.18 cm) [facility] ED Course: 13:11 Patient arrived in ED. am2 13:27 Skyler Fernández MD is Attending Physician. rn 13:36 XRAY Chest Pa And Lat (2 Views) In Process Unspecified. EDMS 13:45 Emmanuelle Grijalva, INSPECTOR WEIGHTS AND MEASURES is [facility] 7 13:45 Skyler Fernández MD is Attending Physician. [facility] 13:45 Triage completed. 5 13:45 Arm band placed on right wrist. 5 15:37 Radha Bal, RN is Primary Nurse. ap3 15:55 Inserted saline lock: 20 gauge in right antecubital area, using aseptic technique. ap3 Blood collected. 16:06 Patient has correct armband on for positive identification. Bed in low position. Call ap3 light in reach. Side rails up X 1. Adult w/ patient. Pulse ox on. NIBP on. Door closed. Noise minimized. 16:06 Patient maintains SpO2 saturation greater than 95% on room air. ap3 16:53 Abdomen In Process Unspecified. EDMS 18:40 CT Chest Wo Con In Process Unspecified. EDMS 18:51 Williams Plummer MD is Referral Physician. jh7 18:52 IV discontinued, intact, bleeding controlled, No redness/swelling at site. Pressure ap3 dressing applied. 18:53 No provider procedures requiring assistance completed. ap3 Administered Medications: 16:02 Drug: NS 0.9% 1000 ml Route: IV; Rate: 1 bolus; Site: right antecubital; ap3 18:26 Follow up: IV Status: Completed infusion ap3 16:03 Drug: Pepcid (famotidine) 20 mg Route: IVP; Site: right antecubital; ap3 17:34 Follow up: Response: No adverse reaction ap3 16:03 Drug: Zofran (Ondansetron) 4 mg Route: IVP; Site: right antecubital; ap3 17:34 Follow up: Response: No adverse reaction; Nausea is decreased ap3 17:33 Drug: GI Cocktail without - (Maalox Suspension 30 ml, Lidocaine Liquid 2 % 15 ap3 ml) Route: PO; 18:26 Follow up: Response: No adverse reaction ap3 Medication: 16:06 VIS not applicable for this client. ap3 Outcome: 18:53 Discharge ordered by . jh7 18:59 Discharged to home ambulatory. ap3 18:59 Condition: good 18:59 Discharge instructions given to patient, Instructed on discharge instructions, follow up and referral plans. Demonstrated understanding of instructions, follow-up care. 18:59 Patient left the ED. ap3 Signatures: Dispatcher [employer] EDMO Skyler Fernández MD MD rn Moreno, Amanda am2 Radha Bal RN RN ap3 Yusra Nagel RN RN jh5 Emmanuelle Grijalva FNP [employer]PECT[employer] 7
[2022-10-24 19:49] VITALS: TEMP 98.6
[2022-10-24 19:55] VITALS: BP 106/74; O2SAT 98
[2022-10-24 20:05] LABS: Urine Specific Gravity/Preg 1.025 (1.005-1.030)
--- NOTE | 2022-10-25 16:57 | EKG ---
Test Date: 2022-10-24 Test Time: 13:46:43 Block Hacker: JADE MEASUREMENT RESULTS: Intervals: Rate: 75 CO: 146 QRSD: 96 QT: 372 QTc: 415 [place]: P: 67 CO: 146 QRS: 46 T: 55 INTERPRETIVE STATEMENTS: Normal sinus rhythm with sinus arrhythmia Normal ECG Compared to ECG 06/19/2022 14:06:22 No significant changes Electronically Signed On 10-25-22 16:54:41 FINISHING RANGE FEEDER by Mario Witt
== END 2022-10-24 18:59 | disposition home or self-care (01) ==
LOC: ER 13:10
DX: R07.89 Other chest pain (principal)
CPT/HCPCS: 36415; 71046; 71250; 74176; 80053; 81003; 81025; 83690; 84484; 85025; 93005; J2405; J7030

== ENCOUNTER 2023-01-25 20:04 | Emergency (ER) | payer SELFPAY ==
--- NOTE | 2023-01-25 21:35 | RAD REPORT ---
EXAM DESCRIPTION: Angelo Single View01/25/2023 9:24 pm CLINICAL HISTORY: Chest pain COMPARISON: September 2022 FINDINGS: The lungs appear clear of acute infiltrate. The heart is normal size IMPRESSION: No acute abnormalities displayed
[2023-01-25 21:44] LABS: Absolute Lymphocytes (CBC) 1.3 K/uL (0.7-4.9); Hematocrit 38.5 % (39.6-49.0); Lymphocytes % 32.1 % (15.3-44.8); MCV 89.4 fL (80-100); MPV 7.8 fL (7.6-11.3)
[2023-01-25 22:09] LABS: Potassium 2.9 mEq/L (3.5-5.1); Troponin High Sensitivity 3.2 pg/mL (<58.9)
--- NOTE | 2023-01-25 22:50 | ER ---
Nurse's Notes [facility] Name: Aakash Bishop Age: 27 yrs Sex: Male : 1995 Arrival Date: 01/25/2023 Time: 20:04 Bed 13 Private MD: Diagnosis: Palpitations;Anxiety disorder, unspecified;Hypokalemia Presentation: 01/25 20:22 Chief complaint: EMS states: "[place] and started feeling a swimming mb9 in his head. He wasn't sure if it was his anxiety or SVT. HR was 70s". Coronavirus screen: Vaccine status: Patient reports being unvaccinated. Ebola Screen: No symptoms or risks identified at this time. Initial Sepsis Screen: Does the patient meet any 2 criteria? No. Patient's initial sepsis screen is negative. Does the patient have a suspected source of infection? No. Patient's initial sepsis screen is negative. Risk Assessment: Do you want to hurt yourself or someone else? Patient reports no desire to harm self or others. Onset of symptoms was January 25, 2023. 20:22 Method Of Arrival: EMS: [facility] mb9 20:22 Acuity: CHRISTIANO 3 mb9 Triage Assessment: 20:26 General: Appears uncomfortable, Behavior is cooperative, appropriate for age. Pain: mb9 Denies pain. Neuro: Level of Consciousness is awake, alert, obeys commands, Oriented to person, place, time, situation, Appropriate for age Reports "dizziness that comes and goes". Cardiovascular: Parent/caregiver reports patient has had since heaviness in chest that comes and goes". Respiratory: Airway is patent Respiratory effort is even, unlabored, Respiratory pattern is regular, symmetrical. Derm: Skin is pink, warm \\T\\ dry. Musculoskeletal: Range of motion: intact in all extremities. Historical: - Allergies: 20:25 PENICILLINS; mb9 - Home Meds: 20:25 metoprolol tartrate 25 mg Oral tablet once [Active]; diazepam 5 mg Oral tablet 3 times mb9 per day [Active]; - PMHx: 20:25 Anxiety; Lupus erythematosus; Panic Attacks; raynaud's; Rheumatoid Arthritis; SVT; mb9 - PSHx: 20:25 Adenoid excision; mb9 - Immunization history:: Adult Immunizations up to date. - Social history:: Smoking status: Patient denies any tobacco usage or history of. Screenin:27 [facility] ED Fall Risk Assessment (Adult) History of falling in the last 3 months, ha1 including since admission No falls in past 3 months (0 pts) Confusion or Disorientation No (0 pts) Intoxicated or Sedated No (0 pts) Impaired Gait No (0 pts) Mobility Assist Device Used No (0 pt) Altered Elimination No (0 pt) Score/Fall Risk Level 0 - 2 = Low Risk Oriented to surroundings, Maintained a safe environment, Educated pt \\T\\ family on fall prevention, incl call for assistance when getting out of bed, Hourly rounding (assess needs \\T\\ fall precautionary measures) done. 21:44 Abuse screen: Denies threats or abuse. Denies injuries from another. Nutritional ha1 screening: No deficits noted. Tuberculosis screening: No symptoms or risk factors identified. Assessment: 20:27 Reassessment: see triage asssessment. mb9 20:27 General: Appears comfortable, Behavior is calm, cooperative. Pain: Complains of pain in ha1 chest Pain does not radiate. Pain currently is 5 out of 10 on a pain scale. Alleviated by rest. Neuro: Level of Consciousness is awake, alert, obeys commands, Oriented to person, place, time, situation. Neuro:. Cardiovascular: Reports palpitations, Capillary refill < 3 seconds Patient's skin is warm and dry. Cardiovascular: Heart tones S1 S2 present Rhythm is sinus rhythm. Respiratory: Airway is patent Respiratory effort is even, unlabored, Respiratory pattern is regular, symmetrical, Breath sounds are clear bilaterally. 23:38 Reassessment: Patient and/or family updated on plan of care and expected duration. Pain ha1 level reassessed. Patient is alert, oriented x 3, equal unlabored respirations, skin warm/dry/pink. awaiting on infusion to be completed. Vital Signs: 20:22 BP 128 / 92; Pulse 70; Resp 18; Temp 98.1(O); Pulse Ox 100% ; Weight 77.11 kg; Height 5 mb9 ft. 7 in. ; Pain 0/10; 21:30 BP 111 / 79; Pulse 68; Resp 15 S; Pulse Ox 100% on R/A; ha1 22:30 BP 112 / 75; Pulse 67; Resp 18 S; Pulse Ox 100% on R/A; ha1 23:30 BP 110 / 75; Pulse 66; Resp 16 S; Pulse Ox 100% on R/A; ha1 01/26 00:30 BP 113 / 75; Pulse 66; Resp 15 S; Pulse Ox 100% on R/A; ha1 01/25 20:22 Body Mass Index 26.63 (77.11 kg, 170.18 cm) mb9 01/25 20:22 Pain Scale: Adult mb9 ED Course: 01/25 20:21 Patient arrived in ED. ag3 20:25 Triage completed. mb9 20:26 Arm band placed on. mb9 20:27 Patient has correct armband on for positive identification. Placed in gown. Bed in low ha1 position. Call light in reach. Side rails up X 1. 20:34 EKG done, by ED staff, reviewed by Wilmer Davey MD. mb9 20:44 Wilmer Davey MD is Attending Physician. kdr 21:10 Licha Lemus, HARDY is Primary Nurse. ha1 21:26 XRAY Chest (1 view) In Process Unspecified. EDMS 21:30 Inserted saline lock: 22 gauge in left antecubital area, using aseptic technique. Blood ha1 collected. 21:42 Basic Metabolic Panel Sent. ha1 21:42 CBC with Diff Sent. ha1 21:42 Troponin HS Sent. ha1 01/26 00:36 IV discontinued, intact, bleeding controlled, No redness/swelling at site. Pressure ha1 dressing applied. 00:36 No provider procedures requiring assistance completed. ha1 Administered Medications: 01/25 23:00 Drug: Potassium PO Effervescent Tablet 50 mEq Route: PO; ha1 01/26 00:36 Follow up: Response: No adverse reaction ha1 01/25 23:00 Drug: Potassium Chloride IV 20 mEq Route: IV; Rate: calculated rate; Site: left ha1 antecubital; 01/26 00:35 Follow up: Response: No adverse reaction; IV Status: Order to discontinue infusion; IV ha1 Intake: 50ml 00:15 Drug: Potassium PO Effervescent Tablet 25 mEq Route: PO; ha1 00:34 Follow up: Response: No adverse reaction ha1 Medication: 00:36 VIS not applicable for this client. ha1 Intake: 00:35 IV: 50ml; Total: 50ml. ha1 Outcome: 01/25 22:49 Discharge ordered by . kdr 01/26 00:36 Patient left the ED. ha1 00:36 Discharged to home ambulatory, with friend. ha1 00:36 Condition: stable 00:36 Discharge instructions given to patient, friend, Instructed on discharge instructions, follow up and referral plans. Demonstrated understanding of instructions, follow-up care. Signatures: Dispatcher [employer] EDMS Wilmer Davey MD MD kdr Gomez, Alice 3 Licha Lemus RN RN ha1 Marlen Diamond RN RN mb9 Corrections: (The following items were deleted from the chart) 01/25 20:28 20:22 Pulse 70bpm; Resp 18bpm; Pulse Ox 100%; Temp 98.1F Oral; 77.11 kg; Height 5 ft. 7 mb9 in.; BMI: 26.6; Pain 0/10, Adult; mb9 01/26 02:47 02:46 IV discontinued, intact, bleeding controlled, No redness/swelling at site. ha1 Pressure dressing applied, ha1
--- NOTE | 2023-01-25 22:50 | EDPHYS ---
Physician Documentation [facility] Name: Aakash Bishop Age: 27 yrs Sex: Male : 1995 Arrival Date: 01/25/2023 Time: 20:04 Bed 13 Private MD: ED Physician Wilmer Davey HPI: 01/25 21:39 This 27 yrs old Male presents to ER via EMS with complaints of Anxiety. kdr 21:39 The patient was at work this evening when he began to feel lightheaded and had kdr palpitations. He has a history of SVT and anxiety. He thought that his heart rate is actually dipped into the 40s. Currently he is generally back to baseline. He still remains concerned that this medication is either making him too slow or that his heart rate is too low. Additionally he has not able to discern whether or not this is primarily an anxiety reaction or whether in fact it is his heart rate not being as controlled as it had been. Patient does not appear in any acute distress heart rate is normal at this time.. Onset: The symptoms/episode began/occurred suddenly, just prior to arrival, today. Severity of symptoms: At their worst the symptoms were mild moderate just prior to arrival, in the emergency department the symptoms are unchanged. The patient has experienced similar episodes in the past, multiple times. The patient has not recently seen a physician. Historical: - Allergies: 20:25 PENICILLINS; mb9 - Home Meds: 20:25 metoprolol tartrate 25 mg Oral tablet once [Active]; diazepam 5 mg Oral tablet 3 times mb9 per day [Active]; - PMHx: 20:25 Anxiety; Lupus erythematosus; Panic Attacks; raynaud's; Rheumatoid Arthritis; SVT; mb9 - PSHx: 20:25 Adenoid excision; mb9 - Immunization history:: Adult Immunizations up to date. - Social history:: Smoking status: Patient denies any tobacco usage or history of. ROS: 21:39 Constitutional: Negative for fever, chills, and weight loss, Eyes: Negative for injury, kdr pain, redness, and discharge, ENT: Negative for injury, pain, and discharge, Neck: Negative for injury, pain, and swelling, Respiratory: Negative for shortness of breath, cough, wheezing, and pleuritic chest pain, Abdomen/GI: Negative for abdominal pain, nausea, vomiting, diarrhea, and constipation, Back: Negative for injury and pain, : Negative for injury, bleeding, discharge, and swelling, MS/Extremity: Negative for injury and deformity, Skin: Negative for injury, rash, and discoloration, Psych: Negative for depression, anxiety, suicide ideation, homicidal ideation, and hallucinations, Allergy/Immunology: Negative for hives, rash, and allergies, Endocrine: Negative for neck swelling, polydipsia, polyuria, polyphagia, and marked weight changes, Hematologic/Lymphatic: Negative for swollen nodes, abnormal bleeding, and unusual bruising. 21:39 Cardiovascular: Positive for chest pain, palpitations. 21:39 Neuro: Positive for dizziness. 21:39 Psych: Positive for anxiety. Exam: 20:55 ECG was reviewed by the Attending Physician. kdr 21:39 Constitutional: This is a well developed, well nourished patient who is awake, alert, kdr and in no acute distress. Head/Face: Normocephalic, atraumatic. Eyes: Pupils equal round and reactive to light, extra-ocular motions intact. Lids and lashes normal. Conjunctiva and sclera are non-icteric and not injected. Cornea within normal limits. Periorbital areas with no swelling, redness, or edema. Neck: Trachea midline, no thyromegaly or masses palpated, and no cervical lymphadenopathy. Supple, full range of motion without nuchal rigidity, or vertebral point tenderness. No Meningismus. Chest/axilla: Normal chest wall appearance and motion. Nontender with no deformity. No lesions are appreciated. Cardiovascular: Regular rate and rhythm with a normal S1 and S2. No gallops, murmurs, or rubs. Normal PMI, no JVD. No pulse deficits. Respiratory: Lungs have equal breath sounds bilaterally, clear to auscultation and percussion. No rales, rhonchi or wheezes noted. No increased work of breathing, no retractions or nasal flaring. Abdomen/GI: Soft, non-tender, with normal bowel sounds. No distension or tympany. No guarding or rebound. No evidence of tenderness throughout. Back: No spinal tenderness. No costovertebral tenderness. Full range of motion. Skin: Warm, dry with normal turgor. Normal color with no rashes, no lesions, and no evidence of cellulitis. MS/ Extremity: Pulses equal, no cyanosis. Neurovascular intact. Full, normal range of motion. Neuro: Awake and alert, GCS 15, oriented to person, place, time, and situation. Cranial nerves II-XII grossly intact. Motor strength 5/5 in all extremities. Sensory grossly intact. Cerebellar exam normal. Normal gait. Psych: Awake, alert, with orientation to person, place and time. Behavior, mood, and affect are within normal limits. Vital Signs: 20:22 BP 128 / 92; Pulse 70; Resp 18; Temp 98.1(O); Pulse Ox 100% ; Weight 77.11 kg; Height 5 mb9 ft. 7 in. ; Pain 0/10; 21:30 BP 111 / 79; Pulse 68; Resp 15 S; Pulse Ox 100% on R/A; ha1 22:30 BP 112 / 75; Pulse 67; Resp 18 S; Pulse Ox 100% on R/A; ha1 23:30 BP 110 / 75; Pulse 66; Resp 16 S; Pulse Ox 100% on R/A; ha1 01/26 00:30 BP 113 / 75; Pulse 66; Resp 15 S; Pulse Ox 100% on R/A; ha1 01/25 20:22 Body Mass Index 26.63 (77.11 kg, 170.18 cm) [facility] 01/25 20:22 Pain Scale: Adult 9 MDM: 01/25 21:39 Data reviewed: vital signs, nurses notes, lab test result(s), EKG, radiologic studies. kdr 22:49 Patient medically screened. [facility] 01/25 20:54 Order name: Basic Metabolic Panel; Complete Time: 22:40 [facility] 01/25 20:54 Order name: CBC with Diff; Complete Time: 22:40 [facility] 01/25 20:54 Order name: Troponin HS; Complete Time: 22:40 [facility] 01/25 20:54 Order name: XRAY Chest (1 view); Complete Time: 22:40 [facility] 01/25 20:34 Order name: EKG - Nurse/Tech; Complete Time: 20:34 [facility] 01/25 20:54 Order name: Cardiac monitoring; Complete Time: 21:42 [facility] 01/25 20:54 Order name: IV Saline Lock; Complete Time: 21:42 [facility] 01/25 20:54 Order name: Labs collected and sent; Complete Time: 21:42 [facility] 01/25 20:54 Order name: O2 Per Protocol; Complete Time: 21:42 kdr 01/25 20:54 Order name: O2 Sat Monitoring; Complete Time: 21:42 kdr EC:55 Rate is 70 beats/min. Rhythm is regular, Normal Sinus Rhythm with No ectopy. QRS [employer] kdr is Normal. [place] interval is normal. QRS interval is normal. QT interval is normal. Clinical impression: Normal ECG. Administered Medications: 23:00 Drug: Potassium PO Effervescent Tablet 50 mEq Route: PO; 1 01/26 00:36 Follow up: Response: No adverse reaction [facility] 01/25 23:00 Drug: Potassium Chloride IV 20 mEq Route: IV; Rate: calculated rate; Site: left ha antecubital; 01/26 00:35 Follow up: Response: No adverse reaction; IV Status: Order to discontinue infusion; IV ha1 Intake: 50ml 00:15 Drug: Potassium PO Effervescent Tablet 25 mEq Route: PO; ha1 00:34 Follow up: Response: No adverse reaction [facility] Disposition Summary: 01/25/23 22:49 Discharge Ordered Location: Home kdr Problem: new kdr Symptoms: have improved kdr Condition: Stable kdr Diagnosis - Palpitations kdr - Anxiety disorder, unspecified kdr - Hypokalemia kdr Followup: kdr - With: Private Physician - When: 2 - 3 days - Reason: If symptoms return, Further diagnostic work-up, Recheck today's complaints, Continuance of care, Re-evaluation by your physician Discharge Instructions: - Discharge Summary Sheet kdr - Palpitations, [id number] kdr - Generalized Anxiety Disorder, Adult kdr - Hypokalemia kdr Forms: - Medication Reconciliation Form kdr - Thank You Letter kdr Signatures: Dispatcher [employer] Wilmer Bhakta MD MD kdr Licha Lemus, RN RN ha1 Marlen Diamond RN RN mb9
[2023-01-25] MEDS ORDERED: NA CHLORIDE 0.9% 500 ML ONE (23:05)
[2023-01-25] MEDS ORDERED: POTASSIUM 25 MEQ EFFERV TAB ONE (23:05)
[2023-01-25] MEDS ORDERED: KCL 20 MEQ/100 mL IVPB 100 ML IV ONE (23:05)
[2023-01-26] MEDS ORDERED: POTASSIUM 25 MEQ EFFERV TAB ONE (00:32)
[2023-01-26 00:41] VITALS: TEMP 98.1; O2SAT 100
[2023-01-26 00:44] VITALS: BP 112/75
--- NOTE | 2023-01-28 07:14 | EKG ---
Test Date: 2023-01-25 Test Time: 20:31:41 Nozzle Operator: MB MEASUREMENT RESULTS: Intervals: Rate: 70 MI: 166 QRSD: 98 QT: 390 QTc: 421 Diamond: P: 65 MI: 166 QRS: 57 T: 51 INTERPRETIVE STATEMENTS: Normal sinus rhythm Normal ECG Compared to ECG 10/24/2022 13:46:43 Sinus arrhythmia no longer present Electronically Signed On 01-28-23 07:10:02 CDT by Luis Mercer
== END 2023-01-26 00:36 | disposition home or self-care (01) ==
LOC: ER 20:04
DX: F41.9 Anxiety disorder, unspecified (principal); E87.6 Hypokalemia
CPT/HCPCS: 36415; 71045; 80048; 84484; 85025; 93005; 96365; 96366; 99285; J3480; J7040

== ENCOUNTER 2023-05-17 11:18 | Emergency (ER) | payer OTHER, SELFPAY ==
[2023-05-17] MEDS ORDERED: LORAZEPAM 1 MG TABLET ONE (11:37)
[2023-05-17 11:48] LABS: Absolute Lymphocytes (CBC) 1.4 K/uL (0.7-4.9); Hematocrit 36.7 % (39.6-49.0); Lymphocytes % 24.6 % (15.3-44.8); MCV 89.3 fL (80-100); MPV 8.4 fL (7.6-11.3); Platelets 285 thou/uL (152-406); RBC Red Blood Cell Count 4.11 M/uL (4.33-5.43)
[2023-05-17 12:15] LABS: Albumin 3.9 g/dL (3.4-5.0); Bilirubin Direct 0.1 mg/dL (0-0.2); Bilirubin Indirect, Calculated 0.3 mg/dL (0.2-0.8); Bilirubin Total 0.4 mg/dL (0.2-1.0); Potassium 3.7 mEq/L (3.5-5.1); Protein, Total 7.1 g/dL (6.4-8.2); Thyroid Stimulating Hormone 0.986 uIU/mL (0.358-3.740); Troponin High Sensitivity 3.9 pg/mL (<58.9)
--- NOTE | 2023-05-17 13:41 | RAD REPORT ---
EXAM DESCRIPTION: RAD - Chest Single View - 05/17/2023 12:33 pm CLINICAL HISTORY: CHEST PAIN Chest pain. COMPARISON: Chest Single View dated 01/25/2023; Chest Pa And Lat (2 Views) dated 10/24/2022; Chest Sing le View dated 06/19/2022 FINDINGS: Portable technique limits examination quality. The lungs are grossly clear. The heart is upper limit of normal in size. No displaced fractures. IMPRESSION: No acute intrathoracic process suspected.
--- NOTE | 2023-05-17 13:46 | EDPHYS ---
Physician Documentation [facility] Name: Aakash Bishop Age: 27 yrs Sex: Male : 1995 Arrival Date: 05/17/2023 Time: 11:18 Bed 13 Private MD: ED Physician Raul Johnson HPI: 05/17 11:33 This 27 yrs old Male presents to ER via EMS with complaints of Chest Pain. rt 11:33 Patient presents to the ED with a chest pain that has been present for 7 days. It is rt intermittent. Radiates posteriorly. States that he had a racing heart. Patient states that he does have anxiety and feels anxious at this time. Denies other acute complaints at this time, symptoms are moderate in severity, no other aggravating or alleviating factors.. Historical: - Allergies: 11: PENICILLINS; kc6 - PMHx: 11:22 Anxiety; Lupus erythematosus; Panic Attacks; raynaud's; Rheumatoid Arthritis; SVT; kc6 - PSHx: 11:22 Adenoid excision; kc6 - Immunization history:: Client reports having NOT received the Covid vaccine. Flu vaccine is not up to date. - Social history:: Smoking status: Patient denies any tobacco usage or history of. - Family history:: not pertinent. ROS: 11:33 Constitutional: Negative for fever, chills, and weight loss, Respiratory: Negative for rt shortness of breath, cough, wheezing, and pleuritic chest pain, Abdomen/GI: Negative for abdominal pain, nausea, vomiting, diarrhea, and constipation, MS/Extremity: Negative for injury and deformity, Skin: Negative for injury, rash, and discoloration, Neuro: Negative for headache, weakness, numbness, tingling, and seizure. 11:33 Cardiovascular: Positive for chest pain, Negative for edema. 11:33 Psych: Positive for anxiety, Negative for suicidal ideation. Exam: 11:33 Constitutional: This is a well developed, well nourished patient who is awake, alert, rt and in no acute distress. Head/Face: Normocephalic, atraumatic. Chest/axilla: Normal chest wall appearance and motion. Nontender with no deformity. No lesions are appreciated. Cardiovascular: Regular rate and rhythm with a normal S1 and S2. No gallops, murmurs, or rubs. Normal PMI, no JVD. No pulse deficits. Respiratory: Lungs have equal breath sounds bilaterally, clear to auscultation and percussion. No rales, rhonchi or wheezes noted. No increased work of breathing, no retractions or nasal flaring. Abdomen/GI: Soft, non-tender, with normal bowel sounds. No distension or tympany. No guarding or rebound. No evidence of tenderness throughout. Skin: Warm, dry with normal turgor. Normal color with no rashes, no lesions, and no evidence of cellulitis. MS/ Extremity: Pulses equal, no cyanosis. Neurovascular intact. Full, normal range of motion. Neuro: Awake and alert, GCS 15, oriented to person, place, time, and situation. Cranial nerves II-XII grossly intact. Motor strength 5/5 in all extremities. Sensory grossly intact. Cerebellar exam normal. Normal gait. Psych: Awake, alert, with orientation to person, place and time. Behavior, mood, and affect are within normal limits. 11:51 ECG was reviewed by the Attending Physician. rt Vital Signs: 11:20 BP 136 / 83; Pulse 85; Resp 16 S; Temp 98.5(O); Pulse Ox 97% on R/A; Weight 79.83 kg kc6 (R); Height 5 ft. 7 in. (R); 12:17 BP 107 / 70; Pulse 67; Resp 16 S; Pulse Ox 94% on R/A; kc6 13:06 BP 116 / 67; Pulse 81; Resp 18 S; Pulse Ox 100% on R/A; Pain 0/10; kc6 11:20 Body Mass Index 27.57 (79.83 kg, 170.18 cm) [facility] 13:06 Pain Scale: Adult kc6 MDM: 11:20 Patient medically screened. rt 15:33 Differential diagnosis: abnormal EKG, acute myocardial infarction, acute pericarditis, rt anxiety, pneumonia, pneumothorax, pulmonary embolus. HEART Score: History: Slightly Suspicious (0), ECG: Normal (0), Age: < or = 45 years (0), Risk Factors: 1 or 2 risk factors (1), Troponin: < or = 1 x Normal Limit (0), Total Score = 1. Data reviewed: vital signs, nurses notes, lab test result(s), EKG, radiologic studies. I considered the following discharge prescriptions or medication management in the emergency department Medications were administered in the Emergency Department. See MAR. Independent interpretation of the following test(s) in the Emergency Department X-Ray: My interpretation is No consolidation seen on interpretation of the x-ray images. Test considered but Not performed: CT: Very low suspicion for pulmonary embolism, CT angiogram not indicated.. Care significantly affected by the following chronic conditions: Lupus, rheumatoid arthritis. Counseling: I had a detailed discussion with the patient and/or guardian regarding the historical points, exam findings, and any diagnostic results supporting the discharge/admit diagnosis, lab results, radiology results, the need for outpatient follow up, to return to the emergency department if symptoms worsen or persist or if there are any questions or concerns that arise at home. Response to treatment: the patient's symptoms have resolved after treatment. 05/17 11:21 Order name: Basic Metabolic Panel; Complete Time: 12:17 rt 05/17 11:21 Order name: CBC with Diff; Complete Time: 12:17 rt 05/17 11:21 Order name: LFT's; Complete Time: 12:17 rt 05/17 11:21 Order name: Magnesium; Complete Time: 12:17 rt 05/17 11:21 Order name: NT PRO-BNP; Complete Time: 12:17 rt 05/17 11:21 Order name: Troponin HS; Complete Time: 12:17 rt 05/17 11:21 Order name: TSH; Complete Time: 12:17 rt 05/17 11:21 Order name: XRAY Chest (1 view); Complete Time: 13:42 rt 05/17 11:21 Order name: EKG; Complete Time: 11:22 rt 05/17 11:21 Order name: Cardiac monitoring; Complete Time: 11:24 rt 05/17 11:21 Order name: EKG - Nurse/Tech; Complete Time: 11:39 rt 05/17 11:21 Order name: IV Saline Lock; Complete Time: 11:39 rt 05/17 11:21 Order name: Labs collected and sent; Complete Time: 11:39 rt 05/17 11:21 Order name: O2 Per Protocol; Complete Time: 11:24 rt 05/17 11:21 Order name: O2 Sat Monitoring; Complete Time: 11:24 rt EC:51 Rate is 69 beats/min. Rhythm is regular, Normal Sinus Rhythm with No ectopy. QRS [place] rt is Normal. [place] interval is normal. QRS interval is normal. QT interval is normal. No Q waves. T waves are Normal. No ST changes noted. Interpreted by me. Administered Medications: 11:39 Drug: LORazepam PO 1 mg Route: PO; kc6 12:55 Follow up: Response: No adverse reaction nj1 Disposition Summary: 05/17/23 13:45 Discharge Ordered Location: Home rt Problem: new rt Symptoms: are resolved rt Condition: Stable rt Diagnosis - Chest pain, unspecified rt Followup: rt - With: Private Physician - When: 2 - 3 days - Reason: Discharge Instructions: - Discharge Summary Sheet rt - Nonspecific Chest Pain, Adult rt Forms: - Medication Reconciliation Form rt - Thank You Letter rt - Antibiotic Education rt - Prescription Opioid Use rt - Patient Portal Instructions rt - Leadership Thank You Letter rt Signatures: Dispatcher [employer] Ave Hinojosa RN RN kc6 Raul Johnson MD MD rt Edyta Dee RN nj1
--- NOTE | 2023-05-17 13:46 | ER ---
Nurse's Notes [facility] Name: Aakash Bishop Age: 27 yrs Sex: Male : 1995 Arrival Date: 05/17/2023 Time: 11:18 Bed 13 Private MD: Diagnosis: Chest pain, unspecified Presentation: 05/17 11:20 Chief complaint: EMS states: chest pain x 3days that radiates to his back. pt was at [facility] work today when he became nauseated and vomited 4 times. 324mg of aspirin and 4mg zofran given en route. Coronavirus screen: At this time, the client does not indicate any symptoms associated with coronavirus-19. Ebola Screen: No symptoms or risks identified at this time. Initial Sepsis Screen: Does the patient meet any 2 criteria? No. Patient's initial sepsis screen is negative. Does the patient have a suspected source of infection? No. Patient's initial sepsis screen is negative. Risk Assessment: Do you want to hurt yourself or someone else? Patient reports no desire to harm self or others. Onset of symptoms was May 17, 2023. 11:20 Method Of Arrival: EMS: [place] [id number] 11:20 Acuity: CHRISTIANO 3 kc6 Triage Assessment: 11:22 General: Appears in no apparent distress. comfortable, Behavior is calm, cooperative, kc6 appropriate for age, anxious. Pain: Complains of pain in back and chest. EENT: No signs and/or symptoms were reported regarding the EENT system. Neuro: Level of Consciousness is awake, alert, obeys commands, Oriented to person, place, time, situation, Appropriate for age. Cardiovascular: Reports chest pain, Heart tones S1 S2 present Capillary refill < 3 seconds. Respiratory: Airway is patent Trachea midline Respiratory effort is even, unlabored, Respiratory pattern is regular, symmetrical. GI: Reports constipation, nausea, vomiting, Patient currently denies abdominal pain, diarrhea. : No signs and/or symptoms were reported regarding the genitourinary system. Derm: No signs and/or symptoms reported regarding the dermatologic system. Skin is intact, is healthy with good turgor, Skin is pink, warm \T\ dry. Musculoskeletal: No signs and/or symptoms reported regarding the musculoskeletal system. Circulation, motion, and sensation intact. Capillary refill < 3 seconds, Range of motion: intact in all extremities. Historical: - Allergies: 11:22 PENICILLINS; kc6 - PMHx: 11:22 Anxiety; Lupus erythematosus; Panic Attacks; raynaud's; Rheumatoid Arthritis; SVT; kc6 - PSHx: 11:22 Adenoid excision; kc6 - Immunization history:: Client reports having NOT received the Covid vaccine. Flu vaccine is not up to date. - Social history:: Smoking status: Patient denies any tobacco usage or history of. - Family history:: not pertinent. Screenin:24 [facility] ED Fall Risk Assessment (Adult) History of falling in the last 3 months, kc6 including since admission No falls in past 3 months (0 pts) Confusion or Disorientation No (0 pts) Intoxicated or Sedated No (0 pts) Impaired Gait No (0 pts) Mobility Assist Device Used No (0 pt) Altered Elimination No (0 pt) Score/Fall Risk Level 0 - 2 = Low Risk. Abuse screen: Denies threats or abuse. Denies injuries from another. Nutritional screening: No deficits noted. Tuberculosis screening: No symptoms or risk factors identified. Assessment: 11:24 Reassessment: please see triage assessment. kc6 12:17 Reassessment: Patient appears in no apparent distress at this time. No changes from [facility] previously documented assessment. Patient and/or family updated on plan of care and expected duration. Pain level reassessed. Patient is alert, oriented x 3, equal unlabored respirations, skin warm/dry/pink. 13:05 Reassessment: Patient appears in no apparent distress at this time. No changes from [facility] previously documented assessment. Patient and/or family updated on plan of care and expected duration. Pain level reassessed. Patient is alert, oriented x 3, equal unlabored respirations, skin warm/dry/pink. Vital Signs: 11:20 BP 136 / 83; Pulse 85; Resp 16 S; Temp 98.5(O); Pulse Ox 97% on R/A; Weight 79.83 kg kc6 (R); Height 5 ft. 7 in. (R); 12:17 BP 107 / 70; Pulse 67; Resp 16 S; Pulse Ox 94% on R/A; kc6 13:06 BP 116 / 67; Pulse 81; Resp 18 S; Pulse Ox 100% on R/A; Pain 0/10; kc6 11:20 Body Mass Index 27.57 (79.83 kg, 170.18 cm) kc6 13:06 Pain Scale: Adult kc6 ED Course: 11:20 Patient arrived in ED. kc6 11:20 Raul Johnson MD is Attending Physician. rt 11:22 Triage completed. kc6 11:22 Arm band placed on. kc6 11:23 Maintain EMS IV. Dressing intact. Good blood return noted. Site clean \T\ dry. Gauge \T\ jong 6 site: 20G RAC. Patient maintains SpO2 saturation greater than 95% on room air. 11:24 Ave rByan, RN is Primary Nurse. kc6 11:24 Patient has correct armband on for positive identification. Bed in low position. Call kc6 light in reach. Side rails up X2. Client placed on continuous cardiac and pulse oximetry monitoring. NIBP monitoring applied. property assessment monitor on. 12:35 XRAY Chest (1 view) In Process Unspecified. EDMS 13:52 No provider procedures requiring assistance completed. IV discontinued, intact, kc6 bleeding controlled, No redness/swelling at site. Pressure dressing applied. Administered Medications: 11:39 Drug: LORazepam PO 1 mg Route: PO; kc6 12:55 Follow up: Response: No adverse reaction nj1 Medication: 13:52 VIS not applicable for this client. kc6 Outcome: 13:45 Discharge ordered by . rt 13:52 Discharged to home ambulatory, with significant other. kc6 13:52 Condition: improved 13:52 Discharge instructions given to patient, Instructed on discharge instructions, follow up and referral plans. Demonstrated understanding of instructions, follow-up care. 13:52 Patient left the ED. kc6 Signatures: Dispatcher [employer] EDMS Ave Bryan, RN RN kc6 Raul Johnson MD MD rt Edyta Dee RN RN nj1
[2023-05-17 13:57] VITALS: TEMP 98.5
[2023-05-17 14:01] VITALS: BP 116/67; O2SAT 100
== END 2023-05-17 13:52 | disposition home or self-care (01) ==
LOC: ER 11:18
DX: R07.89 Other chest pain (principal); F41.9 Anxiety disorder, unspecified; Z88.0 Allergy status to penicillin
CPT/HCPCS: 36415; 71045; 80048; 80076; 83735; 83880; 84443; 84484; 85025; 93005